=== PATIENT | male | born 1975 | race Caucasian/White ===

== ENCOUNTER 2020-06-24 19:57 | Inpatient (IN) ==
[2020-06-24] MEDS ORDERED: Aspirin 81 MG TAB.CHEW PO ONE (19:59)
[2020-06-24 21:32] LABS: Basophils # 0.1 K/mcL (0.0-0.2); Eosinophils # 0.1 K/mcL (0.0-0.6); Eosinophils % 1.8 %; Hematocrit 48.8 % (37.5-50.1); Hemoglobin 16.9 g/dL (12.9-16.9); Immature Granulocytes % 0.4 % (0-4); Lymphocytes # 3.3 K/mcL (0.6-4.6); Lymphocytes % 41.4 %; Mean Corpuscular HGB Conc 34.6 g/dL (31.6-35.5); Mean Corpuscular Volume 92.4 fL (83.0-100.0); Monocytes # 0.6 K/mcL (0.0-1.3); Monocytes % 6.9 %; Neutrophils # 3.9 K/mcL (1.6-8.9); Platelet Count 115 K/mcL (140-400); Red Blood Count 5.28 M/mcL (4.19-5.50); Red Cell Distribution Width 12.5 % (11.5-14.5); Segmented Neutrophils % 48.5 %
[2020-06-24 22:42] LABS: Troponin I < 0.03 ng/mL (< 0.04)
[2020-06-24 22:43] LABS: BUN/Creatinine Ratio 18 (6-26); Blood Urea Nitrogen 18 mg/dL (6-20); Calcium 9.4 mg/dL (8.6-10.3); Carbon Dioxide 24 mEq/L (23-29); Chloride 95 mEq/L (98-107); Glucose 272 mg/dL (70-105); Osmolality,Calculated 284 (280-300); Potassium 3.7 mEq/L (3.5-5.1); Sodium 131 mEq/L (136-145); eGFR For African Americans > 60 (> 60); eGFR For Non-African Americans > 60 (> 60)
[2020-06-24] MEDS ORDERED: Insulin LISPRO 300 UNITS/3 ML VIAL SUBQ SCH (23:45)
[2020-06-24] MEDS ORDERED: Dextrose Gel 15 GM/37.5 ML TUBE PO PRN ×2 (23:57)
[2020-06-24] MEDS ORDERED: *HR* Dextrose 50 % in Water (Vial) 50 ML VIAL IVP PRN (23:57)
[2020-06-24] MEDS ORDERED: D5% in Water 1,000 ML IVC PRN (23:57)
[2020-06-25] MEDS ORDERED: Ondansetron 4 MG/2 ML VIAL IVP PRN
[2020-06-25] MEDS ORDERED: Naloxone 0.4 MG/ML INJ IVP PRN
[2020-06-25] MEDS ORDERED: Nitroglycerin 1 INCH/GM PACKET TP ONE (00:03)
[2020-06-25] MEDS: Insulin LISPRO 300 UNITS/3 ML VIAL SUBQ SCH ×4 (01:03→16:56)
[2020-06-25] MEDS ORDERED: *HR* Metoprolol 5 MG/5 ML VIAL IVP ONE (01:39)
[2020-06-25 02:56] LABS: Hematocrit 46.3 % (37.5-50.1); Hemoglobin 16.6 g/dL (12.9-16.9); Mean Corpuscular HGB Conc 35.9 g/dL (31.6-35.5); Mean Corpuscular Hemoglobin 33.1 pg (28.0-33.3); Mean Corpuscular Volume 92.4 fL (83.0-100.0); Platelet Count 114 K/mcL (140-400); Red Blood Count 5.01 M/mcL (4.19-5.50); Red Cell Distribution Width 12.6 % (11.5-14.5); White Blood Count 8.3 K/mcL (4.3-11.1)
[2020-06-25 03:46] LABS: Hepatitis B Surface Antigen Nonreactive (Nonreactive)
[2020-06-25 03:54] LABS: BUN/Creatinine Ratio 18 (6-26); Blood Urea Nitrogen 18 mg/dL (6-20); Calcium 8.4 mg/dL (8.6-10.3); Carbon Dioxide 20 mEq/L (23-29); Chloride 96 mEq/L (98-107); Chol/HDL Ratio 9.6 (0-4.9); Cholesterol 258 mg/dL (< 200); Glucose 296 mg/dL (70-105); HDL Cholesterol 27 mg/dL (40-59); Magnesium 1.7 mg/dL (1.6-2.6); Osmolality,Calculated 285 (280-300); Potassium 3.6 mEq/L (3.5-5.1); Sodium 131 mEq/L (136-145); Triglycerides 1593 mg/dL (< 150); eGFR For African Americans > 60 (> 60); eGFR For Non-African Americans > 60 (> 60)
[2020-06-25 04:17] LABS: Hepatitis A Antibody IgM Nonreactive (Nonreactive)
[2020-06-25 04:19] LABS: Hepatitis B Core IgM Reactive (Nonreactive)
[2020-06-25] MEDS ORDERED: *HR* Heparin 5,000 UNIT/ML VIAL SQ SCH (06:00)
[2020-06-25] MEDS ORDERED: Regadenoson 0.4 MG/5 ML SYRINGE IVP ONE (06:12)
[2020-06-25] MEDS: Aspirin Enteric Coated 81 MG Tablet PO SCH (10:31)
[2020-06-25 11:21] LABS: Troponin I < 0.03 ng/mL (< 0.04)
[2020-06-25 12:03] LABS: Triglycerides 569 mg/dL (< 150)
[2020-06-25 12:11] LABS: Chol/HDL Ratio 8.3 (0-4.9); Cholesterol 257 mg/dL (< 200); HDL Cholesterol 31 mg/dL (40-59)
[2020-06-25] MEDS ORDERED: Perflutren Lipid Microsphere 1.3 ML in 0.9 % Sodium Chloride 8.7 ML IVP PRN (13:49)
[2020-06-25] MEDS ORDERED: Furosemide 20 MG/2 ML VIAL IVP ONE (13:50)
[2020-06-25] MEDS ORDERED: *HR* Dextrose 50 % in Water (Vial) 50 ML VIAL IVP PRN (20:29)
[2020-06-25] MEDS ORDERED: Insulin LISPRO 300 UNITS/3 ML VIAL SUBQ SCH (21:00)
[2020-06-26] MEDS: Aspirin Enteric Coated 81 MG Tablet PO SCH (08:41)
[2020-06-26] MEDS: Insulin LISPRO 300 UNITS/3 ML VIAL SUBQ SCH ×4 (08:42→20:29)
[2020-06-26 14:08] LABS: Hematocrit 48.1 % (37.5-50.1); Hemoglobin 15.9 g/dL (12.9-16.9); Mean Corpuscular HGB Conc 33.1 g/dL (31.6-35.5); Mean Corpuscular Hemoglobin 31.1 pg (28.0-33.3); Mean Corpuscular Volume 94.1 fL (83.0-100.0); Mean Platelet Volume 11.8 fL (9.4-12.4); Platelet Count 120 K/mcL (140-400); Red Blood Count 5.11 M/mcL (4.19-5.50); Red Cell Distribution Width 12.8 % (11.5-14.5); White Blood Count 7.2 K/mcL (4.3-11.1)
[2020-06-26 14:26] LABS: Alanine Aminotransferase 30 Units/L (7-52); Albumin 3.7 g/dL (3.5-5.7); Alkaline Phosphatase 95 Units/L (34-104); Aspartate Amino Transferase 23 Units/L (13-39); BUN/Creatinine Ratio 17 (6-26); Bilirubin,Total 0.6 mg/dL (0.3-1.0); Blood Urea Nitrogen 17 mg/dL (6-20); Calcium 8.9 mg/dL (8.6-10.3); Carbon Dioxide 23 mEq/L (23-29); Chloride 99 mEq/L (98-107); Globulin 3.6 g/dL (2.4-3.5); Glucose 382 mg/dL (70-105); Osmolality,Calculated 289 (280-300); Potassium 4.2 mEq/L (3.5-5.1); Sodium 131 mEq/L (136-145); Total Protein 7.3 g/dL (6.4-8.9); eGFR For African Americans > 60 (> 60); eGFR For Non-African Americans > 60 (> 60)
[2020-06-27 01:55] LABS: Basophils # 0.1 K/mcL (0.0-0.2); Basophils % 1.1 %; Eosinophils # 0.1 K/mcL (0.0-0.6); Eosinophils % 1.8 %; Hematocrit 48.3 % (37.5-50.1); Immature Granulocytes % 0.3 % (0-4); Lymphocytes # 3.4 K/mcL (0.6-4.6); Lymphocytes % 47.1 %; Mean Corpuscular HGB Conc 33.1 g/dL (31.6-35.5); Mean Corpuscular Hemoglobin 31.3 pg (28.0-33.3); Mean Corpuscular Volume 94.5 fL (83.0-100.0); Mean Platelet Volume 11.7 fL (9.4-12.4); Monocytes # 0.6 K/mcL (0.0-1.3); Monocytes % 7.7 %; Platelet Count 106 K/mcL (140-400); Red Blood Count 5.11 M/mcL (4.19-5.50); Red Cell Distribution Width 12.6 % (11.5-14.5); White Blood Count 7.2 K/mcL (4.3-11.1)
[2020-06-27 02:11] LABS: BUN/Creatinine Ratio 22 (6-26); Blood Urea Nitrogen 21 mg/dL (6-20); Calcium 8.7 mg/dL (8.6-10.3); Carbon Dioxide 23 mEq/L (23-29); Chloride 97 mEq/L (98-107); Glucose 453 mg/dL (70-105); Osmolality,Calculated 295 (280-300); Potassium 4.2 mEq/L (3.5-5.1); Sodium 131 mEq/L (136-145); eGFR For African Americans > 60 (> 60); eGFR For Non-African Americans > 60 (> 60)
[2020-06-27] MEDS: Fenofibrate 54 MG TABLET PO SCH (08:16)
[2020-06-27] MEDS: Aspirin Enteric Coated 81 MG Tablet PO SCH (08:16)
[2020-06-27] MEDS: Insulin LISPRO 300 UNITS/3 ML VIAL SUBQ SCH ×4 (08:17→20:51)
[2020-06-28 05:16] LABS: Hematocrit 48.5 % (37.5-50.1); Hemoglobin 16.2 g/dL (12.9-16.9); Mean Corpuscular HGB Conc 33.4 g/dL (31.6-35.5); Mean Corpuscular Hemoglobin 31.8 pg (28.0-33.3); Mean Corpuscular Volume 95.1 fL (83.0-100.0); Mean Platelet Volume 12.2 fL (9.4-12.4); Platelet Count 106 K/mcL (140-400); Red Cell Distribution Width 12.2 % (11.5-14.5); White Blood Count 6.7 K/mcL (4.3-11.1)
[2020-06-28 05:45] LABS: BUN/Creatinine Ratio 23 (6-26); Blood Urea Nitrogen 21 mg/dL (6-20); Calcium 8.8 mg/dL (8.6-10.3); Carbon Dioxide 21 mEq/L (23-29); Chloride 97 mEq/L (98-107); Glucose 536 mg/dL (70-105); Osmolality,Calculated 293 (280-300); Potassium 4.5 mEq/L (3.5-5.1); Sodium 128 mEq/L (136-145); eGFR For African Americans > 60 (> 60); eGFR For Non-African Americans > 60 (> 60)
[2020-06-28] MEDS ORDERED: Insulin LISPRO 300 UNITS/3 ML VIAL SUBQ ONE (06:03)
[2020-06-28] MEDS: Insulin LISPRO 300 UNITS/3 ML VIAL SUBQ SCH ×5 (06:11→20:54)
[2020-06-28] MEDS ORDERED: 0.9 % Sodium Chloride 500 ML IVC SCH (08:30)
[2020-06-28 09:07] LABS: INR 1.2; Prothrombin Time 14.2 Seconds (9.4-12.1)
[2020-06-28] MEDS: Fenofibrate 54 MG TABLET PO SCH (09:17)
[2020-06-28] MEDS: Aspirin Enteric Coated 81 MG Tablet PO SCH (09:18)
[2020-06-28] MEDS ORDERED: Heparin 1,000 UNITS/500 mL 500 ML ONE (12:07)
[2020-06-28] MEDS ORDERED: ISOVUE-370 200 ML INFUS..BTL ONE (12:07)
[2020-06-28] MEDS ORDERED: *HR* Heparin 10,000 UNIT/10 ML VIAL ONE (12:07)
[2020-06-28] MEDS ORDERED: 0.9 % Sodium Chloride 2,000 ML ONE (12:07)
[2020-06-28] MEDS ORDERED: Nitroglycerin 1,000 MCG/10 ML VIAL IV ONE (12:07)
[2020-06-28] MEDS ORDERED: *HR* Midazolam HCl 2 MG/2 ML VIAL ONE (12:18)
[2020-06-28] MEDS ORDERED: *HR* FentaNYL (PF) 100 MCG/2 ML VIAL ONE (12:18)
[2020-06-28 15:58] LABS: Albumin 3.1 g/dL (3.5-5.7); Albumin/Globulin Ratio 1.1 (1.1-2.2); Bilirubin,Direct 0.1 mg/dL (0.0-0.2); Bilirubin,Indirect 0.5 mg/dL (0.0-1.0); Bilirubin,Total 0.6 mg/dL (0.3-1.0); Globulin 2.8 g/dL (2.4-3.5); Total Protein 5.9 g/dL (6.4-8.9)
[2020-06-28] MEDS: Insulin DETEMIR 100 UNIT/ML X5UNITS SUBQ SCH (20:48)
[2020-06-29 04:34] LABS: Hematocrit 48.1 % (37.5-50.1); Hemoglobin 15.7 g/dL (12.9-16.9); Mean Corpuscular HGB Conc 32.6 g/dL (31.6-35.5); Mean Corpuscular Hemoglobin 31.2 pg (28.0-33.3); Mean Corpuscular Volume 95.4 fL (83.0-100.0); Platelet Count 104 K/mcL (140-400); Red Blood Count 5.04 M/mcL (4.19-5.50); Red Cell Distribution Width 12.4 % (11.5-14.5); White Blood Count 7.5 K/mcL (4.3-11.1)
[2020-06-29 04:36] LABS: INR 1.2; Prothrombin Time 13.5 Seconds (9.4-12.1)
[2020-06-29 04:38] LABS: Activated Partial Thrombo Time 29.4 Seconds (26.0-36.0)
[2020-06-29 04:52] LABS: BUN/Creatinine Ratio 18 (6-26); Blood Urea Nitrogen 19 mg/dL (6-20); Calcium 8.6 mg/dL (8.6-10.3); Carbon Dioxide 23 mEq/L (23-29); Chloride 100 mEq/L (98-107); Glucose 490 mg/dL (70-105); Osmolality,Calculated 296 (280-300); Potassium 4.8 mEq/L (3.5-5.1); Sodium 131 mEq/L (136-145); eGFR For African Americans > 60 (> 60); eGFR For Non-African Americans > 60 (> 60)
[2020-06-29] MEDS: Aspirin Enteric Coated 81 MG Tablet PO SCH (07:39)
[2020-06-29] MEDS: Fenofibrate 54 MG TABLET PO SCH (07:41)
[2020-06-29] MEDS: Insulin LISPRO 300 UNITS/3 ML VIAL SUBQ SCH ×4 (07:47→20:25)
[2020-06-29 12:23] LABS: Adenovirus Not Detected (Not Detect); Bordetella Pertussis Not Detected (Not Detect); Chlamydophila pneumoniae Not Detected (Not Detect); Coronavirus 229E Not Detected (Not Detect); Coronavirus HKU1 Not Detected (Not Detect); Coronavirus NL63 Not Detected (Not Detect); Coronavirus OC43 Not Detected (Not Detect); Human Metapneumovirus Not Detected (Not Detect); Human Rhinovirus/Enterovirus Not Detected (Not Detect); Influenza A Subtype 2009 H1 Not Detected (Not Detect); Influenza B Not Detected (Not Detect); Mycoplasma pneumoniae Not Detected (Not Detect); Parainfluenza Virus 1 Not Detected (Not Detect); Parainfluenza Virus 2 Not Detected (Not Detect); Parainfluenza Virus 3 Not Detected (Not Detect); Parainfluenza Virus 4 Not Detected (Not Detect); Respiratory Syncytial Virus Not Detected (Not Detect); SARS-CoV-2 Not Detected (Not Detect)
[2020-06-29 17:19] LABS: Estimated Average Glucose 252 mg/dl; Hemoglobin A1C 10.4 %
[2020-06-29 17:22] LABS: Chol/HDL Ratio 6.1 (0-4.9)
[2020-06-29] MEDS: Chlorhexidine Rinse 15 ML MOUTHWASH MM SCH (20:14)
[2020-06-29] MEDS: Insulin DETEMIR 100 UNIT/ML X5UNITS SUBQ SCH (20:18)
[2020-06-29 21:51] LABS: Bilirubin,Urine Negative (Negative); Blood,Urine Trace (Negative); Clarity,Urine Clear (Clear); Color,Urine Light-Yellow (Yellow); Glucose,Urine (UA) >=1000 mg/dL (Normal); Ketones,Urine Negative (Negative); Leukocyte Esterase,Urine Negative (Negative); Nitrite,Urine Negative (Negative); PH,Urine 6.5 pH Units (5.0-8.0); Protein,Urine Trace mg/dL (Neg-Trace); RBC,Urine 0-3 per hpf (0-3); Urobilinogen,Urine Normal (Normal); WBC,Urine 0-3 per hpf (0-3)
[2020-06-30] MEDS ORDERED: NiCARdipine 2.5 MG/10 ML Syringe IVPB ONE (06:43)
[2020-06-30] MEDS ORDERED: *HR* Midazolam HCl 5 MG/5 ML VIAL IVP ONE (06:45)
[2020-06-30] MEDS ORDERED: *HR* FentaNYL (PF) 1,000 MCG/20 ML VIAL ONE (06:45)
[2020-06-30] MEDS ORDERED: *HR* Rocuronium Bromide 50 MG/5 ML VIAL ONE ×2 (06:47→11:23)
[2020-06-30] MEDS ORDERED: *HR* PHENYLEPHRINE 1,000 MCG/10 ML SYRINGE IVP ONE (06:47)
[2020-06-30] MEDS ORDERED: *HR* Etomidate 20 MG/10 ML AMPUL IVP ONE (06:48)
[2020-06-30] MEDS ORDERED: EPINEPHrine 1 MG/ML VIAL ONE (06:48)
[2020-06-30] MEDS ORDERED: Famotidine 20 MG/2 ML VIAL ONE (06:48)
[2020-06-30] MEDS: Chlorhexidine Rinse 15 ML MOUTHWASH MM SCH ×2 (06:48→19:42)
[2020-06-30] MEDS ORDERED: Calcium Gluconate 1,000 MG/10 ML VIAL ONE (06:49)
[2020-06-30] MEDS ORDERED: Protamine Sulfate 250 MG/25 ML VIAL IVP ONE (06:49)
[2020-06-30] MEDS ORDERED: Tranexamic Acid 1,000 MG/10 ML VIAL ONE ×4 (06:49→11:30)
[2020-06-30] MEDS ORDERED: CeFAZolin Syr 2,000MG/20 ML 2,000 MG/20 ML SYRINGE IVPB ONE ×2 (07:00→07:45)
[2020-06-30] MEDS ORDERED: Papaverine 60 MG/2 ML VIAL IVP ONE (07:07)
[2020-06-30] MEDS ORDERED: Dextrose 50 % in Water (Vial) 30 ML, Sodium Bicarbonate 20 MEQ, Lidocaine 1% 5 ML, Insu... TH ONE ×3 (07:45)
[2020-06-30] MEDS ORDERED: Dextrose 50 % in Water (Vial) 30 ML, Sodium Bicarbonate 20 MEQ, Potassium Chloride 15 M... TH ONE (07:45)
[2020-06-30] MEDS ORDERED: Insulin Human Regular 100 UNIT in 0.9 % Sodium Chloride 100 ML IV PRN (07:45)
[2020-06-30] MEDS ORDERED: Heparin 15,000 UNIT in 0.9 % Sodium Chloride 500 ML IV ONE (07:45)
[2020-06-30] MEDS ORDERED: Norepinephrine 4 MG in 0.9 % Sodium Chloride 250 ML IVC PRN (07:45)
[2020-06-30] MEDS ORDERED: Albumin Human 25% 25 GM/100 ML IV.SOLN IVPB ONE (08:24)
[2020-06-30] MEDS ORDERED: Tranexamic Acid 1,000 MG/10 ML VIAL IR ONE (08:24)
[2020-06-30] MEDS ORDERED: *HR* Heparin 10,000 UNIT/10 ML VIAL IR ONE (08:24)
[2020-06-30] MEDS ORDERED: *HR* Magnesium Sulfate 2 GM/50 ML PIGGYBACK IVPB ONE (08:24)
[2020-06-30] MEDS ORDERED: *HR* Phenylephrine 10 MG/ML VIAL IVC ONE (08:24)
[2020-06-30] MEDS ORDERED: Mannitol 25% vial 12.5 GM/50 ML VIAL IVPB ONE (08:24)
[2020-06-30] MEDS ORDERED: Lidocaine 2% Syringe 100 MG/5 ML IVP ONE (08:24)
[2020-06-30 09:13] LABS: ABG Base Excess -1 mEq/L (-2 to 3); ABG Chloride 100 mEq/L (98-107); ABG Glucose 354 mg/dL (60-95); ABG HCO3 24 mEq/L (21-27); ABG Ionized Calcium 1.14 mmol/L (1.15-1.35); ABG Oxygen Saturation 100 % (95-98); ABG PCO2 39 mmHg (35-45); ABG PH 7.39 pH Units (7.32-7.45); ABG PO2 172 mmHg (85-104); ABG TCO2 25 mEq/L (20-26)
[2020-06-30 09:59] LABS: ABG Base Excess -7 mEq/L (-2 to 3); ABG Chloride 113 mEq/L (98-107); ABG Glucose 287 mg/dL (60-95); ABG HCO3 18 mEq/L (21-27); ABG Ionized Calcium 0.55 mmol/L (1.15-1.35); ABG Oxygen Saturation 99 % (95-98); ABG PCO2 34 mmHg (35-45); ABG PH 7.33 pH Units (7.32-7.45); ABG PO2 161 mmHg (85-104); ABG TCO2 19 mEq/L (20-26)
[2020-06-30 10:15] LABS: ABG Base Excess -2 mEq/L (-2 to 3); ABG Chloride 96 mEq/L (98-107); ABG Glucose 374 mg/dL (60-95); ABG HCO3 23 mEq/L (21-27); ABG Ionized Calcium 0.96 mmol/L (1.15-1.35); ABG Oxygen Saturation 100 % (95-98); ABG PCO2 42 mmHg (35-45); ABG PH 7.35 pH Units (7.32-7.45); ABG PO2 623 mmHg (85-104); ABG TCO2 25 mEq/L (20-26)
[2020-06-30 11:11] LABS: ABG Base Excess -1 mEq/L (-2 to 3); ABG Chloride 96 mEq/L (98-107); ABG Glucose 394 mg/dL (60-95); ABG HCO3 25 mEq/L (21-27); ABG Ionized Calcium 0.97 mmol/L (1.15-1.35); ABG Oxygen Saturation 100 % (95-98); ABG PCO2 43 mmHg (35-45); ABG PH 7.37 pH Units (7.32-7.45); ABG PO2 497 mmHg (85-104); ABG TCO2 26 mEq/L (20-26)
[2020-06-30 11:41] LABS: ABG Base Excess -5 mEq/L (-2 to 3); ABG Chloride 100 mEq/L (98-107); ABG Glucose 368 mg/dL (60-95); ABG HCO3 20 mEq/L (21-27); ABG Ionized Calcium 1.08 mmol/L (1.15-1.35); ABG Oxygen Saturation 100 % (95-98); ABG PCO2 34 mmHg (35-45); ABG PH 7.38 pH Units (7.32-7.45); ABG PO2 630 mmHg (85-104); ABG TCO2 21 mEq/L (20-26)
[2020-06-30] MEDS ORDERED: Albumin Human 5% 50.0 GM/1,000 ML IV.SOLN ONE (11:43)
[2020-06-30] MEDS ORDERED: Protamine Sulfate 50 MG/5 ML VIAL IVP ONE (11:50)
[2020-06-30] MEDS ORDERED: *HR* Dextrose 50 % in Water (Vial) 50 ML VIAL IVP PRN (12:19)
[2020-06-30] MEDS ORDERED: Potassium Chloride 40 MEQ/200 ML BAG IVPB PRN (12:19)
[2020-06-30] MEDS ORDERED: Insulin Regular, Human 100 UNIT/ML IV PRN (12:19)
[2020-06-30] MEDS ORDERED: *HR* Promethazine 25 MG/ML VIAL IM PRN (12:19)
[2020-06-30] MEDS ORDERED: Albumin Human 5% 12.5 GM/250 ML IV.SOLN IVPB PRN (12:19)
[2020-06-30 12:27] LABS: ABG Base Excess -6 mEq/L (-2 to 3); ABG Chloride 109 mEq/L (98-107); ABG Glucose 311 mg/dL (60-95); ABG HCO3 19 mEq/L (21-27); ABG Ionized Calcium 0.79 mmol/L (1.15-1.35); ABG Oxygen Saturation 98 % (95-98); ABG PCO2 35 mmHg (35-45); ABG PH 7.34 pH Units (7.32-7.45); ABG PO2 119 mmHg (85-104); ABG TCO2 20 mEq/L (20-26)
[2020-06-30] MEDS ORDERED: 0.9 % Sodium Chloride 1,000 ML IVC SCH (12:30)
[2020-06-30] MEDS ORDERED: Norepinephrine 4 MG/254 ML IV.SOLN IVC SCH (12:30)
[2020-06-30] MEDS: Insulin Human Regular 100 UNIT in 0.9 % Sodium Chloride 100 ML IVC SCH ×2 (12:35→20:06)
[2020-06-30 12:52] LABS: ABG Base Excess 0 mEq/L (-2 to 3); ABG HCO3 26 mEq/L (21-27); ABG Oxygen Saturation 98 % (95-98); ABG PCO2 44 mmHg (35-45); ABG PH 7.37 pH Units (7.32-7.45); ABG PO2 115 mmHg (85-104); ABG TCO2 27 mEq/L (20-26); Blood Gas Modality ASSIST CONTROL; Blood Gas VT 700 cc
[2020-06-30 13:03] LABS: Basophils # 0.1 K/mcL (0.0-0.2); Basophils % 0.6 %; Eosinophils # 0.1 K/mcL (0.0-0.6); Eosinophils % 0.9 %; Hematocrit 38.8 % (37.5-50.1); Immature Granulocytes % 0.6 % (0-4); Lymphocytes # 2.2 K/mcL (0.6-4.6); Lymphocytes % 18.7 %; Mean Corpuscular HGB Conc 33.5 g/dL (31.6-35.5); Mean Corpuscular Hemoglobin 31.3 pg (28.0-33.3); Mean Corpuscular Volume 93.3 fL (83.0-100.0); Mean Platelet Volume 11.6 fL (9.4-12.4); Monocytes # 0.8 K/mcL (0.0-1.3); Monocytes % 6.7 %; Red Blood Count 4.16 M/mcL (4.19-5.50); Red Cell Distribution Width 12.3 % (11.5-14.5); Segmented Neutrophils % 72.5 %
[2020-06-30 13:05] LABS: White Blood Count 11.5 K/mcL (4.3-11.1)
[2020-06-30 13:06] LABS: Neutrophils # 8.3 K/mcL (1.6-8.9); Platelet Count 85 K/mcL (140-400)
[2020-06-30] MEDS: *HR* FentaNYL (PF) 100 MCG/2 ML VIAL IVP PRN ×8 (13:06→23:03)
[2020-06-30 13:11] LABS: INR 1.5; Prothrombin Time 17.6 Seconds (9.4-12.1)
[2020-06-30 13:16] LABS: Activated Partial Thrombo Time 27.3 Seconds (26.0-36.0)
[2020-06-30 13:21] LABS: BUN/Creatinine Ratio 19 (6-26); Blood Urea Nitrogen 16 mg/dL (6-20); Calcium 8.8 mg/dL (8.6-10.3); Carbon Dioxide 24 mEq/L (23-29); Chloride 103 mEq/L (98-107); Glucose 307 mg/dL (70-105); Magnesium 2.3 mg/dL (1.6-2.6); Osmolality,Calculated 295 (280-300); Sodium 136 mEq/L (136-145); eGFR For African Americans > 60 (> 60); eGFR For Non-African Americans > 60 (> 60)
[2020-06-30] MEDS: *HR* OxyCODONE/APAP 5/325 TABLET PO PRN ×3 (13:36→23:00)
[2020-06-30] MEDS: niCARdipine 20 MG/200 ML MLS IVC SCH ×3 (15:07→19:42)
[2020-06-30] MEDS: Aspirin Enteric Coated 81 MG Tablet PO SCH (16:09)
[2020-06-30] MEDS: Fenofibrate 54 MG TABLET PO SCH (16:10)
[2020-06-30] MEDS: CeFAZolin 2 GM/120 ML BAG IVPB SCH (16:27)
[2020-06-30 17:23] LABS: ABG Base Excess -1 mEq/L (-2 to 3); ABG HCO3 24 mEq/L (21-27); ABG Oxygen Saturation 97 % (95-98); ABG PCO2 40 mmHg (35-45); ABG PH 7.38 pH Units (7.32-7.45); ABG PO2 96 mmHg (85-104); ABG TCO2 25 mEq/L (20-26); Blood Gas Modality CPAP/PS; Blood Gas Pressure Support 5 cm H2O
[2020-06-30 18:46] LABS: ABG Base Excess -5 mEq/L (-2 to 3); ABG HCO3 21 mEq/L (21-27); ABG Oxygen Saturation 95 % (95-98); ABG PCO2 39 mmHg (35-45); ABG PH 7.34 pH Units (7.32-7.45); ABG PO2 78 mmHg (85-104); ABG TCO2 22 mEq/L (20-26)
[2020-07-01] MEDS: *HR* FentaNYL (PF) 100 MCG/2 ML VIAL IVP PRN ×7 (00:13→07:03)
[2020-07-01] MEDS: CeFAZolin 2 GM/120 ML BAG IVPB SCH (00:14)
[2020-07-01] MEDS: *HR* OxyCODONE/APAP 5/325 TABLET PO PRN (04:17)
[2020-07-01] MEDS: niCARdipine 20 MG/200 ML MLS IVC SCH ×2 (04:20→04:21)
[2020-07-01 04:25] LABS: Eosinophils % 0.1 %; Immature Granulocytes % 0.6 % (0-4)
[2020-07-01 04:27] LABS: Basophils # 0.1 K/mcL (0.0-0.2); Basophils % 0.5 %; Hematocrit 41.5 % (37.5-50.1); Hemoglobin 13.8 g/dL (12.9-16.9); Immature Platelets 8.3 % (1.1-6.1); Lymphocytes # 2.4 K/mcL (0.6-4.6); Lymphocytes % 13.3 %; Mean Corpuscular HGB Conc 33.3 g/dL (31.6-35.5); Mean Corpuscular Hemoglobin 31.3 pg (28.0-33.3); Mean Corpuscular Volume 94.1 fL (83.0-100.0); Mean Platelet Volume 11.8 fL (9.4-12.4); Monocytes # 2.7 K/mcL (0.0-1.3); Monocytes % 14.8 %; Neutrophils # 12.8 K/mcL (1.6-8.9); Platelet Count 118 K/mcL (140-400); Red Blood Count 4.41 M/mcL (4.19-5.50); Red Cell Distribution Width 12.8 % (11.5-14.5); Segmented Neutrophils % 70.7 %; White Blood Count 18.1 K/mcL (4.3-11.1)
[2020-07-01 04:38] LABS: BUN/Creatinine Ratio 19 (6-26); Blood Urea Nitrogen 17 mg/dL (6-20); Calcium 8.3 mg/dL (8.6-10.3); Carbon Dioxide 24 mEq/L (23-29); Chloride 105 mEq/L (98-107); Glucose 144 mg/dL (70-105); Osmolality,Calculated 286 (280-300); Potassium 4.9 mEq/L (3.5-5.1); Sodium 136 mEq/L (136-145); eGFR For African Americans > 60 (> 60); eGFR For Non-African Americans > 60 (> 60)
[2020-07-01] MEDS: Insulin Human Regular 100 UNIT in 0.9 % Sodium Chloride 100 ML IVC SCH (08:00)
[2020-07-01] MEDS ORDERED: *HR* HYDROmorphone (PF) 1 MG/ML SYRINGE IVP PRN (08:11)
[2020-07-01] MEDS ORDERED: *HR* OxyCODONE/APAP 10/325 TABLET PO PRN (08:13)
[2020-07-01] MEDS: Chlorhexidine Rinse 15 ML MOUTHWASH MM SCH ×2 (08:35→21:07)
[2020-07-01] MEDS: Aspirin Enteric Coated 81 MG Tablet PO SCH (08:35)
[2020-07-01] MEDS: Fenofibrate 54 MG TABLET PO SCH (08:35)
[2020-07-01] MEDS ORDERED: Pantoprazole 40 MG VIAL IVP SCH (09:00)
[2020-07-01] MEDS ORDERED: *HR* Promethazine 25 MG/ML VIAL IM PRN (09:48)
[2020-07-01] MEDS ORDERED: D5% in Water 1,000 ML IVC PRN (09:48)
[2020-07-01] MEDS ORDERED: Naloxone 0.4 MG/ML INJ IVP PRN (09:48)
[2020-07-01] MEDS ORDERED: *HR* HYDROmorphone 2 MG/ML SYRINGE IVP PRN (09:48)
[2020-07-01] MEDS ORDERED: *HR* Dextrose 50 % in Water (Vial) 50 ML VIAL IVP PRN (09:48)
[2020-07-01] MEDS ORDERED: Ondansetron 4 MG/2 ML VIAL IVP PRN (09:48)
[2020-07-01] MEDS ORDERED: Dextrose Gel 15 GM/37.5 ML TUBE PO PRN ×2 (09:48)
[2020-07-01] MEDS: *HR* OxyCODONE/APAP 10/325 TABLET PO PRN ×3 (10:21→22:25)
[2020-07-01] MEDS: Insulin DETEMIR 100 UNIT/ML X5UNITS SUBQ SCH ×2 (10:21→21:08)
[2020-07-01] MEDS: Insulin LISPRO 300 UNITS/3 ML VIAL SUBQ SCH ×3 (10:22→21:05)
[2020-07-01] MEDS: *HR* HYDROmorphone (PF) 1 MG/ML SYRINGE IVP PRN ×3 (15:54→21:09)
[2020-07-01] MEDS: *HR* Heparin 5,000 UNIT/ML VIAL SQ SCH (17:16)
[2020-07-02] MEDS: *HR* HYDROmorphone (PF) 1 MG/ML SYRINGE IVP PRN ×4 (01:12→19:43)
[2020-07-02] MEDS: *HR* Heparin 5,000 UNIT/ML VIAL SQ SCH ×2 (04:45→17:17)
[2020-07-02] MEDS: *HR* OxyCODONE/APAP 10/325 TABLET PO PRN ×4 (04:46→22:37)
[2020-07-02 06:13] LABS: Basophils # 0.1 K/mcL (0.0-0.2); Basophils % 0.4 %; Eosinophils # 0.1 K/mcL (0.0-0.6); Eosinophils % 0.6 %; Hematocrit 39.9 % (37.5-50.1); Hemoglobin 12.9 g/dL (12.9-16.9); Immature Granulocytes % 0.5 % (0-4); Lymphocytes # 2.6 K/mcL (0.6-4.6); Lymphocytes % 16.3 %; Mean Corpuscular HGB Conc 32.3 g/dL (31.6-35.5); Mean Corpuscular Hemoglobin 31.6 pg (28.0-33.3); Mean Corpuscular Volume 97.8 fL (83.0-100.0); Mean Platelet Volume 11.7 fL (9.4-12.4); Monocytes # 2.1 K/mcL (0.0-1.3); Monocytes % 13.1 %; Neutrophils # 11.2 K/mcL (1.6-8.9); Platelet Count 108 K/mcL (140-400); Red Blood Count 4.08 M/mcL (4.19-5.50); Red Cell Distribution Width 12.6 % (11.5-14.5); Segmented Neutrophils % 69.1 %; White Blood Count 16.2 K/mcL (4.3-11.1)
[2020-07-02 06:34] LABS: BUN/Creatinine Ratio 21 (6-26); Blood Urea Nitrogen 19 mg/dL (6-20); Calcium 8.9 mg/dL (8.6-10.3); Carbon Dioxide 27 mEq/L (23-29); Chloride 98 mEq/L (98-107); Glucose 310 mg/dL (70-105); Osmolality,Calculated 288 (280-300); Potassium 5.4 mEq/L (3.5-5.1); Sodium 132 mEq/L (136-145); eGFR For African Americans > 60 (> 60); eGFR For Non-African Americans > 60 (> 60)
[2020-07-02] MEDS: Chlorhexidine Rinse 15 ML MOUTHWASH MM SCH ×2 (08:56→19:42)
[2020-07-02] MEDS: Insulin LISPRO 300 UNITS/3 ML VIAL SUBQ SCH ×4 (08:58→19:41)
[2020-07-02] MEDS: Aspirin Enteric Coated 81 MG Tablet PO SCH (08:59)
[2020-07-02] MEDS: Fenofibrate 54 MG TABLET PO SCH (08:59)
[2020-07-02] MEDS ORDERED: Pantoprazole 40 MG VIAL IVP SCH (09:00)
[2020-07-02] MEDS: Insulin DETEMIR 100 UNIT/ML X5UNITS SUBQ SCH ×2 (10:19→19:42)
[2020-07-02] MEDS: Famotidine 20 MG TABLET PO SCH (19:42)
[2020-07-03] MEDS: *HR* HYDROmorphone (PF) 1 MG/ML SYRINGE IVP PRN ×3 (00:23→12:00)
[2020-07-03 03:27] LABS: Basophils % 0.5 %; Hemoglobin 12.1 g/dL (12.9-16.9)
[2020-07-03 03:29] LABS: Basophils # 0.1 K/mcL (0.0-0.2); Eosinophils # 0.1 K/mcL (0.0-0.6); Eosinophils % 0.9 %; Hematocrit 36.9 % (37.5-50.1); Immature Granulocytes % 0.6 % (0-4); Immature Platelets 9.7 % (1.1-6.1); Lymphocytes # 3.3 K/mcL (0.6-4.6); Lymphocytes % 29.5 %; Mean Corpuscular HGB Conc 32.8 g/dL (31.6-35.5); Mean Corpuscular Hemoglobin 31.6 pg (28.0-33.3); Mean Corpuscular Volume 96.3 fL (83.0-100.0); Mean Platelet Volume 11.8 fL (9.4-12.4); Monocytes # 1.2 K/mcL (0.0-1.3); Monocytes % 10.6 %; Neutrophils # 6.5 K/mcL (1.6-8.9); Red Blood Count 3.83 M/mcL (4.19-5.50); Red Cell Distribution Width 12.6 % (11.5-14.5); Segmented Neutrophils % 57.9 %; White Blood Count 11.2 K/mcL (4.3-11.1)
[2020-07-03 03:31] LABS: Platelet Count 89 K/mcL (140-400)
[2020-07-03 03:35] LABS: BUN/Creatinine Ratio 21 (6-26); Blood Urea Nitrogen 19 mg/dL (6-20); Calcium 9.3 mg/dL (8.6-10.3); Carbon Dioxide 28 mEq/L (23-29); Chloride 97 mEq/L (98-107); Glucose 288 mg/dL (70-105); Osmolality,Calculated 287 (280-300); Potassium 4.5 mEq/L (3.5-5.1); Sodium 132 mEq/L (136-145); eGFR For African Americans > 60 (> 60); eGFR For Non-African Americans > 60 (> 60)
[2020-07-03] MEDS: *HR* OxyCODONE/APAP 10/325 TABLET PO PRN ×3 (04:01→20:16)
[2020-07-03] MEDS: *HR* Heparin 5,000 UNIT/ML VIAL SQ SCH ×2 (04:01→16:59)
[2020-07-03] MEDS: Aspirin Enteric Coated 81 MG Tablet PO SCH (07:58)
[2020-07-03] MEDS: Famotidine 20 MG TABLET PO SCH ×2 (07:58→20:15)
[2020-07-03] MEDS: Fenofibrate 54 MG TABLET PO SCH (07:59)
[2020-07-03] MEDS: Insulin LISPRO 300 UNITS/3 ML VIAL SUBQ SCH ×4 (08:02→20:24)
[2020-07-03] MEDS: Chlorhexidine Rinse 15 ML MOUTHWASH MM SCH ×2 (08:02→20:15)
[2020-07-03] MEDS: Insulin DETEMIR 100 UNIT/ML X5UNITS SUBQ SCH ×2 (10:06→20:24)
[2020-07-04] MEDS: *HR* OxyCODONE/APAP 10/325 TABLET PO PRN ×2 (00:01→08:35)
[2020-07-04] MEDS: *HR* Heparin 5,000 UNIT/ML VIAL SQ SCH ×2 (06:42→17:04)
[2020-07-04] MEDS: Chlorhexidine Rinse 15 ML MOUTHWASH MM SCH ×2 (08:29→19:51)
[2020-07-04] MEDS: Insulin LISPRO 300 UNITS/3 ML VIAL SUBQ SCH ×4 (08:29→20:01)
[2020-07-04] MEDS: Aspirin Enteric Coated 81 MG Tablet PO SCH (08:29)
[2020-07-04] MEDS: Fenofibrate 54 MG TABLET PO SCH (08:29)
[2020-07-04] MEDS: Insulin DETEMIR 100 UNIT/ML X5UNITS SUBQ SCH ×2 (08:29→19:49)
[2020-07-04] MEDS: Famotidine 20 MG TABLET PO SCH ×2 (08:29→19:50)
[2020-07-04] MEDS: polyethylene glycoL 3350 17 GM POWD.PACK PO SCH (10:58)
[2020-07-04] MEDS: Gabapentin 300 MG CAPSULE PO SCH ×3 (10:58→19:50)
[2020-07-04] MEDS: *HR* HYDROmorphone (PF) 1 MG/ML SYRINGE IVP PRN (19:47)
[2020-07-04 20:47] LABS: HBV Quant Log by PCR NOT DETECTED log IU/mL; HBV Quant by PCR NOT DETECTED
[2020-07-04] MEDS ORDERED: Insulin DETEMIR 100 UNIT/ML X5UNITS SUBQ SCH (21:00)
[2020-07-05] MEDS: *HR* OxyCODONE/APAP 10/325 TABLET PO PRN ×4 (04:02→20:06)
[2020-07-05] MEDS: *HR* Heparin 5,000 UNIT/ML VIAL SQ SCH ×2 (06:06→17:15)
[2020-07-05 07:00] LABS: HBV Quant Interpretation NOT DETECTED (Not Detected)
[2020-07-05] MEDS: Chlorhexidine Rinse 15 ML MOUTHWASH MM SCH ×2 (08:31→20:05)
[2020-07-05] MEDS: Famotidine 20 MG TABLET PO SCH ×2 (08:31→20:06)
[2020-07-05] MEDS: polyethylene glycoL 3350 17 GM POWD.PACK PO SCH (08:31)
[2020-07-05] MEDS: Fenofibrate 54 MG TABLET PO SCH (08:31)
[2020-07-05] MEDS: Aspirin Enteric Coated 81 MG Tablet PO SCH (08:31)
[2020-07-05] MEDS: Gabapentin 300 MG CAPSULE PO SCH ×3 (08:32→20:06)
[2020-07-05] MEDS: Insulin LISPRO 300 UNITS/3 ML VIAL SUBQ SCH ×4 (08:32→20:19)
[2020-07-05] MEDS: Insulin DETEMIR 100 UNIT/ML X5UNITS SUBQ SCH ×2 (08:36→20:19)
[2020-07-05] MEDS: *HR* HYDROmorphone (PF) 1 MG/ML SYRINGE IVP PRN ×3 (15:39→23:17)
[2020-07-06] MEDS: *HR* Heparin 5,000 UNIT/ML VIAL SQ SCH ×2 (06:09→16:11)
[2020-07-06] MEDS: *HR* OxyCODONE/APAP 10/325 TABLET PO PRN ×2 (06:09→12:22)
[2020-07-06] MEDS: Insulin LISPRO 300 UNITS/3 ML VIAL SUBQ SCH ×4 (07:52→20:33)
[2020-07-06] MEDS: Chlorhexidine Rinse 15 ML MOUTHWASH MM SCH ×2 (07:54→20:29)
[2020-07-06] MEDS: Insulin DETEMIR 100 UNIT/ML X5UNITS SUBQ SCH ×2 (07:54→20:31)
[2020-07-06] MEDS: Aspirin Enteric Coated 81 MG Tablet PO SCH (07:54)
[2020-07-06] MEDS: Famotidine 20 MG TABLET PO SCH ×2 (07:54→20:31)
[2020-07-06] MEDS: polyethylene glycoL 3350 17 GM POWD.PACK PO SCH (07:56)
[2020-07-06] MEDS: Fenofibrate 54 MG TABLET PO SCH (07:56)
[2020-07-06] MEDS: Gabapentin 300 MG CAPSULE PO SCH ×3 (07:56→20:30)
[2020-07-06] MEDS: *HR* HYDROmorphone (PF) 1 MG/ML SYRINGE IVP PRN ×3 (08:33→20:35)
[2020-07-07] MEDS: *HR* HYDROmorphone (PF) 1 MG/ML SYRINGE IVP PRN ×6 (03:15→23:38)
[2020-07-07] MEDS: *HR* Heparin 5,000 UNIT/ML VIAL SQ SCH ×2 (05:50→16:31)
[2020-07-07 07:03] LABS: HCV Quant Log NOT DETECTED log IU/mL
[2020-07-07] MEDS: Gabapentin 300 MG CAPSULE PO SCH ×3 (07:58→21:13)
[2020-07-07] MEDS: Fenofibrate 54 MG TABLET PO SCH (07:58)
[2020-07-07] MEDS: Aspirin Enteric Coated 81 MG Tablet PO SCH (07:58)
[2020-07-07] MEDS: polyethylene glycoL 3350 17 GM POWD.PACK PO SCH (07:59)
[2020-07-07] MEDS: Chlorhexidine Rinse 15 ML MOUTHWASH MM SCH ×2 (07:59→21:09)
[2020-07-07] MEDS: Famotidine 20 MG TABLET PO SCH ×2 (08:35→21:12)
[2020-07-07] MEDS: Insulin DETEMIR 100 UNIT/ML X5UNITS SUBQ SCH ×2 (08:36→22:52)
[2020-07-07] MEDS: Insulin LISPRO 300 UNITS/3 ML VIAL SUBQ SCH ×6 (08:36→22:52)
[2020-07-07] MEDS: *HR* OxyCODONE/APAP 10/325 TABLET PO PRN ×2 (08:57→16:28)
[2020-07-07 09:56] LABS: HCV Quant Interpretation NOT DETECTED (Not Detected)
[2020-07-08] MEDS: *HR* OxyCODONE/APAP 10/325 TABLET PO PRN ×2 (02:19→12:45)
[2020-07-08] MEDS: *HR* Heparin 5,000 UNIT/ML VIAL SQ SCH (07:46)
[2020-07-08] MEDS: Insulin LISPRO 300 UNITS/3 ML VIAL SUBQ SCH ×2 (08:43→12:45)
[2020-07-08] MEDS: Chlorhexidine Rinse 15 ML MOUTHWASH MM SCH (08:44)
[2020-07-08] MEDS: Aspirin Enteric Coated 81 MG Tablet PO SCH (08:44)
[2020-07-08] MEDS: Fenofibrate 54 MG TABLET PO SCH (08:45)
[2020-07-08] MEDS: Gabapentin 300 MG CAPSULE PO SCH (08:45)
[2020-07-08] MEDS: polyethylene glycoL 3350 17 GM POWD.PACK PO SCH (08:45)
[2020-07-08] MEDS: Insulin DETEMIR 100 UNIT/ML X5UNITS SUBQ SCH (08:45)
[2020-07-08] MEDS: Famotidine 20 MG TABLET PO SCH (08:45)
[2020-07-08 10:35] LABS: BUN/Creatinine Ratio 21 (6-26); Blood Urea Nitrogen 18 mg/dL (6-20); Calcium 8.7 mg/dL (8.6-10.3); Carbon Dioxide 26 mEq/L (23-29); Chloride 96 mEq/L (98-107); Glucose 386 mg/dL (70-105); Magnesium 1.9 mg/dL (1.6-2.6); Osmolality,Calculated 286 (280-300); Potassium 4.6 mEq/L (3.5-5.1); Sodium 129 mEq/L (136-145); eGFR For African Americans > 60 (> 60); eGFR For Non-African Americans > 60 (> 60)
[2020-07-08 11:22] VITALS: BP 136/80
[2020-07-08 11:42] LABS: Basophils # 0.1 K/mcL (0.0-0.2); Eosinophils # 0.1 K/mcL (0.0-0.6); Eosinophils % 2.2 %; Hemoglobin 11.4 g/dL (12.9-16.9); Immature Granulocytes % 0.5 % (0-4); Lymphocytes # 1.8 K/mcL (0.6-4.6); Mean Corpuscular HGB Conc 32.6 g/dL (31.6-35.5); Mean Corpuscular Hemoglobin 31.3 pg (28.0-33.3); Mean Corpuscular Volume 96.2 fL (83.0-100.0); Mean Platelet Volume 11.8 fL (9.4-12.4); Monocytes # 0.6 K/mcL (0.0-1.3); Monocytes % 9.1 %; Neutrophils # 3.6 K/mcL (1.6-8.9); Platelet Count 154 K/mcL (140-400); Red Blood Count 3.64 M/mcL (4.19-5.50); Red Cell Distribution Width 12.4 % (11.5-14.5); Segmented Neutrophils % 58.2 %; White Blood Count 6.3 K/mcL (4.3-11.1)
[2020-07-08] MEDS ORDERED: Insulin LISPRO 300 UNITS/3 ML VIAL SUBQ SCH (12:00)
== END 2020-07-08 15:24 | disposition home or self-care (01) | DRG 166 ==
LOC: EMEROOARM 19:57 → 3BNU 19:57 → SUATTDRO 06-28 16:04 → ICNU 06-30 07:54 → 2NNU 07-01 18:20
PROVIDERS: ADMIT Internal Medicine; ATTEND Pharmacist

== ENCOUNTER 2021-09-07 14:56 | Inpatient (IN) ==
[2021-09-07] MEDS ORDERED: Isovue-370 500 ML BOTTLE IVP ONE (21:09)
[2021-09-07] MEDS ORDERED: 0.9 % Sodium Chloride 2,000 ML IV ONE (21:09)
[2021-09-07] MEDS ORDERED: cefTRIAXone 1,000 MG in Water for inj. (sterile) 10 ML IVP ONE (21:09)
[2021-09-07] MEDS ORDERED: Ketorolac 30 MG/ML VIAL IVP ONE (21:12)
[2021-09-07] MEDS ORDERED: Tdap (Boostrix) Vaccine 0.5 ML SYRINGE IM ONE (21:12)
[2021-09-07] MEDS ORDERED: Vancomycin 1,500 MG/265 ML IV.SOLN IVPB ONE (21:15)
[2021-09-07 21:42] LABS: Basophils % 0.5 %; Eosinophils # 0.1 K/mcL (0.0-0.6); Eosinophils % 1.8 %; Hematocrit 44.9 % (37.5-50.1); Hemoglobin 14.7 g/dL (12.9-16.9); Immature Granulocytes % 0.8 % (0-4); Lymphocytes # 2.1 K/mcL (0.6-4.6); Lymphocytes % 26.2 %; Mean Corpuscular HGB Conc 32.7 g/dL (31.6-35.5); Mean Corpuscular Hemoglobin 30.5 pg (28.0-33.3); Mean Corpuscular Volume 93.2 fL (83.0-100.0); Mean Platelet Volume 11.8 fL (9.4-12.4); Monocytes # 0.7 K/mcL (0.0-1.3); Monocytes % 8.3 %; Neutrophils # 4.9 K/mcL (1.6-8.9); Platelet Count 122 K/mcL (140-400); Red Blood Count 4.82 M/mcL (4.19-5.50); Red Cell Distribution Width 12.8 % (11.5-14.5); Segmented Neutrophils % 62.4 %; White Blood Count 7.8 K/mcL (4.3-11.1)
[2021-09-07 21:51] LABS: INR 1.1; Prothrombin Time 12.1 Seconds (9.4-12.1)
[2021-09-07 21:53] LABS: Activated Partial Thrombo Time 33.1 Seconds (26.0-36.0)
[2021-09-07 22:01] LABS: BUN/Creatinine Ratio 17 (6-26); Blood Urea Nitrogen 15 mg/dL (6-20); Carbon Dioxide 27 mEq/L (23-29); Chloride 96 mEq/L (98-107); Glucose 494 mg/dL (70-105); Osmolality,Calculated 295 (280-300); Potassium 4.1 mEq/L (3.5-5.1); Sodium 131 mEq/L (136-145); eGFR For African Americans > 60 (> 60); eGFR For Non-African Americans > 60 (> 60)
[2021-09-07 23:04] LABS: VBG HCO3 26 mEq/L (21-27); VBG PCO2 39 mmHg (41-51); VBG PH 7.43 pH Units (7.32-7.42); VBG PO2 51 mmHg (25-50)
[2021-09-08] MEDS ORDERED: Ondansetron 4 MG/2 ML VIAL IVP PRN (00:10)
[2021-09-08] MEDS ORDERED: Naloxone 0.4 MG/ML INJ IVP PRN (00:10)
[2021-09-08] MEDS ORDERED: Melatonin 3 MG TABLET PO PRN (00:10)
[2021-09-08] MEDS ORDERED: Acetaminophen 325 MG TABLET PO PRN (00:10)
[2021-09-08] MEDS ORDERED: *HR* HYDROcodone/Acet 5/325 mg TABLET PO PRN (00:10)
[2021-09-08] MEDS ORDERED: Dextrose Gel 15 GM/37.5 ML TUBE PO PRN ×2 (00:12)
[2021-09-08] MEDS ORDERED: *HR* Dextrose 50 % in Water (Syg) 50 ML SYRINGE IVP PRN (00:12)
[2021-09-08] MEDS ORDERED: D5% in Water 1,000 ML IVC PRN (00:12)
[2021-09-08] MEDS ORDERED: Insulin Human Regular 10 UNIT in 0.9 % Sodium Chloride 10 ML IV ONE (00:30)
[2021-09-08] MEDS: Piperacillin/Tazobactam 3.375 GM in 0.9 % Sodium Chloride Mini Bag 100 ML IVPB SCH ×4 (00:52→23:46)
[2021-09-08] MEDS: Ringers Solution, Lactated 1,000 ML IVC SCH ×2 (01:32→18:03)
[2021-09-08 04:12] LABS: Amphetamine Screen,Urine Negative ng/mL (Cutoff=1000); Barbiturate Screen,Urine Negative ng/mL (Cutoff=200); Benzodiazepines Screen,Urine Negative ng/mL (Cutoff=200); Cannabinoid Screen,Urine Negative ng/mL (Cutoff = 50); Cocaine Screen,Urine Negative ng/mL (Cutoff= 300); Opiate Screen,Urine Positive ng/mL (Cutoff=300); Phencyclidine Screen,Urine Negative ng/mL (Cutoff=25)
[2021-09-08] MEDS ORDERED: Ketorolac 30 MG/ML VIAL IVP PRN (04:41)
[2021-09-08] MEDS: *HR* Enoxaparin 40 MG/0.4 ML SYRINGE SQ SCH (06:09)
[2021-09-08] MEDS: Chlorhexidine Rinse 15 ML MOUTHWASH MM SCH ×4 (06:16→23:46)
[2021-09-08 06:49] LABS: Basophils # 0.1 K/mcL (0.0-0.2); Basophils % 0.8 %; Eosinophils # 0.2 K/mcL (0.0-0.6); Eosinophils % 2.8 %; Hematocrit 41.6 % (37.5-50.1); Hemoglobin 13.5 g/dL (12.9-16.9); Immature Granulocytes % 0.6 % (0-4); Immature Platelets 11.3 % (1.1-6.1); Lymphocytes # 2.4 K/mcL (0.6-4.6); Lymphocytes % 30.2 %; Mean Corpuscular HGB Conc 32.5 g/dL (31.6-35.5); Mean Corpuscular Hemoglobin 30.5 pg (28.0-33.3); Mean Corpuscular Volume 94.1 fL (83.0-100.0); Mean Platelet Volume 12.1 fL (9.4-12.4); Monocytes # 0.7 K/mcL (0.0-1.3); Monocytes % 8.9 %; Neutrophils # 4.5 K/mcL (1.6-8.9); Red Blood Count 4.42 M/mcL (4.19-5.50); Red Cell Distribution Width 13.1 % (11.5-14.5); Segmented Neutrophils % 56.7 %; White Blood Count 7.9 K/mcL (4.3-11.1)
[2021-09-08 06:59] LABS: INR 1.1; Prothrombin Time 12.8 Seconds (9.4-12.1)
[2021-09-08 07:07] LABS: Platelet Count 93 K/mcL (140-400)
[2021-09-08 07:08] LABS: Platelet Estimate Decreased (Normal)
[2021-09-08 07:36] LABS: Alanine Aminotransferase 12 Units/L (7-52); Albumin 3.1 g/dL (3.5-5.7); Albumin/Globulin Ratio 0.9 (1.1-2.2); Alkaline Phosphatase 89 Units/L (34-104); Aspartate Amino Transferase 12 Units/L (13-39); BUN/Creatinine Ratio 13 (6-26); Bilirubin,Total 0.3 mg/dL (0.3-1.0); Blood Urea Nitrogen 9 mg/dL (6-20); Carbon Dioxide 26 mEq/L (23-29); Chloride 106 mEq/L (98-107); Globulin 3.3 g/dL (2.4-3.5); Glucose 209 mg/dL (70-105); Osmolality,Calculated 289 (280-300); Phosphorous 2.7 mg/dL (2.7-4.5); Potassium 3.8 mEq/L (3.5-5.1); Sodium 137 mEq/L (136-145); Total Protein 6.4 g/dL (6.4-8.9); eGFR For African Americans > 60 (> 60); eGFR For Non-African Americans > 60 (> 60)
[2021-09-08] MEDS: Aspirin Enteric Coated 81 MG Tablet PO SCH (07:52)
[2021-09-08] MEDS: Gabapentin 300 MG CAPSULE PO SCH ×3 (07:52→20:25)
[2021-09-08] MEDS: Lactobacillus 1 EACH CAP.SPRINK PO SCH ×2 (07:52→20:26)
[2021-09-08] MEDS ORDERED: Insulin DETEMIR 100 UNIT/ML X5UNITS SUBQ SCH (09:00)
[2021-09-08] MEDS ORDERED: Chlorhexidine Rinse 15 ML MOUTHWASH MM SCH (09:00)
[2021-09-08 09:16] LABS: Magnesium 1.6 mg/dL (1.6-2.6)
[2021-09-08] MEDS ORDERED: Acetaminophen IV 1,000 MG/100 ML BAG IVPB ONE (10:15)
[2021-09-08] MEDS: Insulin LISPRO 300 UNITS/3 ML VIAL SUBQ SCH ×3 (11:03→17:45)
[2021-09-08] MEDS: Saliva Stimulant 44.3ml BOTTLE PO SCH ×4 (11:04→20:26)
[2021-09-08 11:17] LABS: C-Reactive Protein 95 mg/L (Less than 10)
[2021-09-08] MEDS: Insulin DETEMIR 100 UNIT/ML X5UNITS SUBQ SCH ×2 (12:36→22:00)
[2021-09-08] MEDS: Vancomycin 1,500 MG/265 ML IV.SOLN IVPB SCH ×2 (12:52→22:00)
[2021-09-08 13:26] LABS: Estimated Average Glucose 338 mg/dl; Hemoglobin A1C 13.4 %
[2021-09-08] MEDS ORDERED: Insulin LISPRO 300 UNITS/3 ML VIAL SUBQ SCH (21:00)
[2021-09-09 04:40] LABS: Basophils # 0.1 K/mcL (0.0-0.2); Basophils % 0.8 %; Eosinophils # 0.2 K/mcL (0.0-0.6); Eosinophils % 2.3 %; Hematocrit 44.3 % (37.5-50.1); Hemoglobin 14.1 g/dL (12.9-16.9); Immature Granulocytes % 0.6 % (0-4); Immature Platelets 7.9 % (1.1-6.1); Lymphocytes % 38.1 %; Mean Corpuscular HGB Conc 31.8 g/dL (31.6-35.5); Mean Corpuscular Hemoglobin 30.3 pg (28.0-33.3); Mean Corpuscular Volume 95.1 fL (83.0-100.0); Mean Platelet Volume 11.7 fL (9.4-12.4); Monocytes # 0.7 K/mcL (0.0-1.3); Monocytes % 8.7 %; Neutrophils # 3.9 K/mcL (1.6-8.9); Platelet Count 121 K/mcL (140-400); Red Blood Count 4.66 M/mcL (4.19-5.50); Red Cell Distribution Width 13.1 % (11.5-14.5); Segmented Neutrophils % 49.5 %; White Blood Count 7.9 K/mcL (4.3-11.1)
[2021-09-09] MEDS: Chlorhexidine Rinse 15 ML MOUTHWASH MM SCH ×4 (05:32→23:15)
[2021-09-09] MEDS: *HR* Enoxaparin 40 MG/0.4 ML SYRINGE SQ SCH (05:32)
[2021-09-09] MEDS: Aspirin Enteric Coated 81 MG Tablet PO SCH (07:31)
[2021-09-09] MEDS: Lactobacillus 1 EACH CAP.SPRINK PO SCH ×2 (07:31→20:30)
[2021-09-09] MEDS: Gabapentin 300 MG CAPSULE PO SCH ×3 (07:31→20:30)
[2021-09-09] MEDS: Saliva Stimulant 44.3ml BOTTLE PO SCH ×4 (07:32→20:30)
[2021-09-09] MEDS: Piperacillin/Tazobactam 3.375 GM in 0.9 % Sodium Chloride Mini Bag 100 ML IVPB SCH ×3 (07:32→23:55)
[2021-09-09] MEDS: Insulin LISPRO 300 UNITS/3 ML VIAL SUBQ SCH ×3 (07:43→17:50)
[2021-09-09] MEDS: Insulin DETEMIR 100 UNIT/ML X5UNITS SUBQ SCH ×2 (07:44→20:31)
[2021-09-09 09:29] LABS: BUN/Creatinine Ratio 11 (6-26); Blood Urea Nitrogen 9 mg/dL (6-20); Calcium 8.3 mg/dL (8.6-10.3); Carbon Dioxide 25 mEq/L (23-29); Chloride 102 mEq/L (98-107); Glucose 334 mg/dL (70-105); Magnesium 1.6 mg/dL (1.6-2.6); Osmolality,Calculated 286 (280-300); Potassium 4.2 mEq/L (3.5-5.1); Sodium 132 mEq/L (136-145); eGFR For African Americans > 60 (> 60); eGFR For Non-African Americans > 60 (> 60)
[2021-09-09] MEDS: Loratadine 10 MG TABLET PO SCH (11:27)
[2021-09-09] MEDS: Vancomycin 1,750 MG/517.5 ML IV.SOLN IVPB SCH ×2 (11:27→22:12)
[2021-09-09] MEDS: Artificial Tears SOLN 15 ML BOTTLE BOTH EYES SCH ×3 (15:46→20:39)
[2021-09-10] MEDS: Insulin LISPRO 300 UNITS/3 ML VIAL SUBQ SCH ×5 (02:10→20:15)
[2021-09-10 04:24] LABS: Basophils # 0.1 K/mcL (0.0-0.2); Basophils % 0.9 %; Eosinophils # 0.2 K/mcL (0.0-0.6); Eosinophils % 2.3 %; Hematocrit 44.3 % (37.5-50.1); Hemoglobin 14.7 g/dL (12.9-16.9); Immature Granulocytes % 0.8 % (0-4); Lymphocytes # 2.3 K/mcL (0.6-4.6); Lymphocytes % 36.3 %; Mean Corpuscular HGB Conc 33.2 g/dL (31.6-35.5); Mean Corpuscular Hemoglobin 30.7 pg (28.0-33.3); Mean Corpuscular Volume 92.5 fL (83.0-100.0); Mean Platelet Volume 11.5 fL (9.4-12.4); Monocytes # 0.5 K/mcL (0.0-1.3); Monocytes % 8.3 %; Neutrophils # 3.3 K/mcL (1.6-8.9); Platelet Count 122 K/mcL (140-400); Red Blood Count 4.79 M/mcL (4.19-5.50); Red Cell Distribution Width 12.7 % (11.5-14.5); Segmented Neutrophils % 51.4 %; White Blood Count 6.4 K/mcL (4.3-11.1)
[2021-09-10 04:39] LABS: BUN/Creatinine Ratio 16 (6-26); Blood Urea Nitrogen 12 mg/dL (6-20); Calcium 8.6 mg/dL (8.6-10.3); Carbon Dioxide 26 mEq/L (23-29); Chloride 102 mEq/L (98-107); Glucose 263 mg/dL (70-105); Magnesium 1.6 mg/dL (1.6-2.6); Osmolality,Calculated 287 (280-300); Potassium 4.1 mEq/L (3.5-5.1); Sodium 134 mEq/L (136-145); eGFR For African Americans > 60 (> 60); eGFR For Non-African Americans > 60 (> 60)
[2021-09-10] MEDS: *HR* Enoxaparin 40 MG/0.4 ML SYRINGE SQ SCH (05:38)
[2021-09-10] MEDS: Chlorhexidine Rinse 15 ML MOUTHWASH MM SCH ×4 (05:38→23:06)
[2021-09-10] MEDS: Aspirin Enteric Coated 81 MG Tablet PO SCH (08:29)
[2021-09-10] MEDS: Piperacillin/Tazobactam 3.375 GM in 0.9 % Sodium Chloride Mini Bag 100 ML IVPB SCH ×2 (08:29→15:39)
[2021-09-10] MEDS: Artificial Tears SOLN 15 ML BOTTLE BOTH EYES SCH ×4 (08:29→19:46)
[2021-09-10] MEDS: Loratadine 10 MG TABLET PO SCH (08:29)
[2021-09-10] MEDS: Lactobacillus 1 EACH CAP.SPRINK PO SCH ×2 (08:30→19:45)
[2021-09-10] MEDS: Famotidine 20 MG TABLET PO SCH (08:30)
[2021-09-10] MEDS: Gabapentin 300 MG CAPSULE PO SCH ×3 (08:30→19:45)
[2021-09-10] MEDS: Insulin DETEMIR 100 UNIT/ML X5UNITS SUBQ SCH ×2 (08:31→20:14)
[2021-09-10] MEDS: Saliva Stimulant 44.3ml BOTTLE PO SCH ×4 (08:31→20:14)
[2021-09-10] MEDS: Vancomycin 1,750 MG/517.5 ML IV.SOLN IVPB SCH (12:33)
[2021-09-11] MEDS: Vancomycin 2,000 MG/520 ML IV.SOLN IVPB SCH ×2 (00:34→11:31)
[2021-09-11] MEDS: Piperacillin/Tazobactam 3.375 GM in 0.9 % Sodium Chloride Mini Bag 100 ML IVPB SCH ×3 (00:35→16:18)
[2021-09-11] MEDS: Chlorhexidine Rinse 15 ML MOUTHWASH MM SCH ×3 (05:01→15:11)
[2021-09-11] MEDS: *HR* Enoxaparin 40 MG/0.4 ML SYRINGE SQ SCH (05:04)
[2021-09-11] MEDS: Insulin LISPRO 300 UNITS/3 ML VIAL SUBQ SCH ×4 (07:16→20:04)
[2021-09-11] MEDS: Saliva Stimulant 44.3ml BOTTLE PO SCH ×4 (07:16→20:02)
[2021-09-11] MEDS: Insulin DETEMIR 100 UNIT/ML X5UNITS SUBQ SCH ×2 (07:17→20:03)
[2021-09-11] MEDS: Aspirin Enteric Coated 81 MG Tablet PO SCH (07:17)
[2021-09-11] MEDS: Famotidine 20 MG TABLET PO SCH (07:18)
[2021-09-11] MEDS: Gabapentin 300 MG CAPSULE PO SCH ×3 (07:18→20:03)
[2021-09-11] MEDS: Loratadine 10 MG TABLET PO SCH (07:18)
[2021-09-11] MEDS: Lactobacillus 1 EACH CAP.SPRINK PO SCH ×2 (07:18→20:03)
[2021-09-11] MEDS: Artificial Tears SOLN 15 ML BOTTLE BOTH EYES SCH ×4 (10:55→20:03)
[2021-09-11 11:19] LABS: Adenovirus F 40/41 PCR Not detected (Not detect); Astrovirus PCR Not detected (Not detect); C.difficile Toxin A/B Gene PCR Not detected (Not detect); Campylobacter by PCR Not detected (Not detect); Cryptosporidium by PCR Not detected (Not detect); Cyclospora cayetanensis PCR Not detected (Not detect); E. coli O157 by PCR Not detected (Not detect); Entamoeba histolytica PCR Not detected (Not detect); Enteroaggregative E.coli(EAEC) Not detected (Not detect); Enteropathogenic E.coli(EPEC) Not detected (Not detect); Enterotoxigenic E.coli (ETEC) Not detected (Not detect); Giardia lamblia PCR Not detected (Not detect); Norovirus GI/GII PCR Not detected (Not detect); Plesiomonas shigelloides PCR Not detected (Not detect); Rotavirus A PCR Not detected (Not detect); Salmonella PCR Not detected (Not detect); Sapovirus PCR Not detected (Not detect); Shig/EnteroinvasiveE coli EIEC Not detected (Not detect); Shigalike tox-prod E coli STEC Not detected (Not detect); Vibrio PCR Not detected (Not detect); Vibrio cholerae PCR Not detected (Not detect); Yersinia enterocolitica PCR Not detected (Not detect)
[2021-09-12] MEDS: Vancomycin 2,000 MG/520 ML IV.SOLN IVPB SCH ×2 (00:32→12:01)
[2021-09-12] MEDS: Piperacillin/Tazobactam 3.375 GM in 0.9 % Sodium Chloride Mini Bag 100 ML IVPB SCH ×2 (00:32→08:07)
[2021-09-12] MEDS: Chlorhexidine Rinse 15 ML MOUTHWASH MM SCH ×5 (00:33→21:25)
[2021-09-12] MEDS: *HR* Enoxaparin 40 MG/0.4 ML SYRINGE SQ SCH (06:23)
[2021-09-12] MEDS: Insulin LISPRO 300 UNITS/3 ML VIAL SUBQ SCH ×4 (08:05→21:24)
[2021-09-12] MEDS: Gabapentin 300 MG CAPSULE PO SCH ×3 (08:06→21:25)
[2021-09-12] MEDS: Lactobacillus 1 EACH CAP.SPRINK PO SCH ×2 (08:06→21:23)
[2021-09-12] MEDS: Aspirin Enteric Coated 81 MG Tablet PO SCH (08:06)
[2021-09-12] MEDS: Famotidine 20 MG TABLET PO SCH (08:06)
[2021-09-12] MEDS: Loratadine 10 MG TABLET PO SCH (08:06)
[2021-09-12] MEDS: Artificial Tears SOLN 15 ML BOTTLE BOTH EYES SCH ×4 (08:07→21:25)
[2021-09-12] MEDS: Saliva Stimulant 44.3ml BOTTLE PO SCH ×4 (08:07→21:25)
[2021-09-12] MEDS: Insulin DETEMIR 100 UNIT/ML X5UNITS SUBQ SCH ×2 (09:34→21:24)
[2021-09-12] MEDS: Vancomycin 1,500 MG/265 ML IV.SOLN IVPB SCH (21:24)
[2021-09-13 04:18] LABS: eGFR For African Americans > 60 (> 60); eGFR For Non-African Americans > 60 (> 60)
[2021-09-13] MEDS: Chlorhexidine Rinse 15 ML MOUTHWASH MM SCH ×4 (05:27→20:50)
[2021-09-13] MEDS: *HR* Enoxaparin 40 MG/0.4 ML SYRINGE SQ SCH (05:49)
[2021-09-13] MEDS: Vancomycin 1,500 MG/265 ML IV.SOLN IVPB SCH (05:50)
[2021-09-13] MEDS: Insulin LISPRO 300 UNITS/3 ML VIAL SUBQ SCH ×4 (07:39→20:50)
[2021-09-13] MEDS ORDERED: Lidocaine -MPF 1% 5 ML AMPUL INFILT ONE (09:00)
[2021-09-13] MEDS: Saliva Stimulant 44.3ml BOTTLE PO SCH ×4 (09:22→20:49)
[2021-09-13] MEDS: Artificial Tears SOLN 15 ML BOTTLE BOTH EYES SCH ×4 (09:22→20:49)
[2021-09-13] MEDS: Aspirin Enteric Coated 81 MG Tablet PO SCH (09:23)
[2021-09-13] MEDS: Lactobacillus 1 EACH CAP.SPRINK PO SCH ×2 (09:23→20:49)
[2021-09-13] MEDS: Famotidine 20 MG TABLET PO SCH (09:23)
[2021-09-13] MEDS: Loratadine 10 MG TABLET PO SCH (09:23)
[2021-09-13] MEDS: Gabapentin 300 MG CAPSULE PO SCH ×3 (09:26→20:49)
[2021-09-13] MEDS: Insulin DETEMIR 100 UNIT/ML X5UNITS SUBQ SCH ×2 (12:33→20:50)
[2021-09-13] MEDS: Vancomycin 2,000 MG/520 ML IV.SOLN IVPB SCH (17:52)
[2021-09-14] MEDS: Chlorhexidine Rinse 15 ML MOUTHWASH MM SCH ×4 (05:33→23:58)
[2021-09-14] MEDS: Vancomycin 2,000 MG/520 ML IV.SOLN IVPB SCH ×2 (05:56→17:01)
[2021-09-14] MEDS: *HR* Enoxaparin 40 MG/0.4 ML SYRINGE SQ SCH (05:57)
[2021-09-14 06:59] LABS: Basophils # 0.1 K/mcL (0.0-0.2); Basophils % 0.8 %; Eosinophils # 0.1 K/mcL (0.0-0.6); Eosinophils % 1.2 %; Hematocrit 46.8 % (37.5-50.1); Hemoglobin 15.4 g/dL (12.9-16.9); Immature Granulocytes % 0.9 % (0-4); Lymphocytes # 2.8 K/mcL (0.6-4.6); Lymphocytes % 31.7 %; Mean Corpuscular HGB Conc 32.9 g/dL (31.6-35.5); Mean Corpuscular Hemoglobin 30.1 pg (28.0-33.3); Mean Corpuscular Volume 91.6 fL (83.0-100.0); Mean Platelet Volume 11.8 fL (9.4-12.4); Monocytes # 0.6 K/mcL (0.0-1.3); Monocytes % 7.2 %; Neutrophils # 5.2 K/mcL (1.6-8.9); Platelet Count 118 K/mcL (140-400); Red Blood Count 5.11 M/mcL (4.19-5.50); Red Cell Distribution Width 12.6 % (11.5-14.5); Segmented Neutrophils % 58.2 %; White Blood Count 8.9 K/mcL (4.3-11.1)
[2021-09-14 07:48] LABS: BUN/Creatinine Ratio 25 (6-26); Blood Urea Nitrogen 20 mg/dL (6-20); Calcium 8.9 mg/dL (8.6-10.3); Carbon Dioxide 24 mEq/L (23-29); Chloride 100 mEq/L (98-107); Glucose 345 mg/dL (70-105); Osmolality,Calculated 292 (280-300); Potassium 4.3 mEq/L (3.5-5.1); Sodium 133 mEq/L (136-145); eGFR For African Americans > 60 (> 60); eGFR For Non-African Americans > 60 (> 60)
[2021-09-14] MEDS: Insulin LISPRO 300 UNITS/3 ML VIAL SUBQ SCH ×4 (08:02→21:27)
[2021-09-14] MEDS: Aspirin Enteric Coated 81 MG Tablet PO SCH (08:03)
[2021-09-14] MEDS: Artificial Tears SOLN 15 ML BOTTLE BOTH EYES SCH ×4 (08:03→19:40)
[2021-09-14] MEDS: Lactobacillus 1 EACH CAP.SPRINK PO SCH ×2 (08:03→21:26)
[2021-09-14] MEDS: Loratadine 10 MG TABLET PO SCH (08:03)
[2021-09-14] MEDS: Gabapentin 300 MG CAPSULE PO SCH ×3 (08:03→23:58)
[2021-09-14] MEDS: Famotidine 20 MG TABLET PO SCH (08:03)
[2021-09-14] MEDS: Saliva Stimulant 44.3ml BOTTLE PO SCH ×4 (08:03→19:40)
[2021-09-14] MEDS: Insulin DETEMIR 100 UNIT/ML X5UNITS SUBQ SCH (08:08)
[2021-09-14] MEDS ORDERED: Insulin DETEMIR 100 UNIT/ML X5UNITS SUBQ SCH (21:00)
[2021-09-15] MEDS: Chlorhexidine Rinse 15 ML MOUTHWASH MM SCH ×3 (04:41→17:25)
[2021-09-15] MEDS: *HR* Enoxaparin 40 MG/0.4 ML SYRINGE SQ SCH (05:26)
[2021-09-15] MEDS: Vancomycin 2,000 MG/520 ML IV.SOLN IVPB SCH ×2 (05:28→17:25)
[2021-09-15 06:07] LABS: Basophils # 0.1 K/mcL (0.0-0.2); Basophils % 0.7 %; Eosinophils # 0.1 K/mcL (0.0-0.6); Eosinophils % 1.3 %; Hematocrit 46.1 % (37.5-50.1); Hemoglobin 15.6 g/dL (12.9-16.9); Immature Granulocytes % 0.8 % (0-4); Mean Corpuscular HGB Conc 33.8 g/dL (31.6-35.5); Mean Corpuscular Hemoglobin 30.9 pg (28.0-33.3); Mean Corpuscular Volume 91.3 fL (83.0-100.0); Mean Platelet Volume 11.7 fL (9.4-12.4); Monocytes # 0.8 K/mcL (0.0-1.3); Neutrophils # 5.4 K/mcL (1.6-8.9); Platelet Count 132 K/mcL (140-400); Red Blood Count 5.05 M/mcL (4.19-5.50); Red Cell Distribution Width 12.7 % (11.5-14.5); Segmented Neutrophils % 57.2 %; White Blood Count 9.5 K/mcL (4.3-11.1)
[2021-09-15 06:37] LABS: BUN/Creatinine Ratio 23 (6-26); Blood Urea Nitrogen 17 mg/dL (6-20); Carbon Dioxide 26 mEq/L (23-29); Chloride 98 mEq/L (98-107); Glucose 341 mg/dL (70-105); Osmolality,Calculated 287 (280-300); Potassium 4.2 mEq/L (3.5-5.1); Sodium 131 mEq/L (136-145); eGFR For African Americans > 60 (> 60); eGFR For Non-African Americans > 60 (> 60)
[2021-09-15] MEDS: Insulin LISPRO 300 UNITS/3 ML VIAL SUBQ SCH ×3 (08:10→17:25)
[2021-09-15] MEDS: Lactobacillus 1 EACH CAP.SPRINK PO SCH (08:14)
[2021-09-15] MEDS: Aspirin Enteric Coated 81 MG Tablet PO SCH (08:14)
[2021-09-15] MEDS: Famotidine 20 MG TABLET PO SCH (08:14)
[2021-09-15] MEDS: Gabapentin 300 MG CAPSULE PO SCH ×2 (08:14→17:24)
[2021-09-15] MEDS: Loratadine 10 MG TABLET PO SCH (08:15)
[2021-09-15] MEDS: Saliva Stimulant 44.3ml BOTTLE PO SCH ×3 (08:16→17:25)
[2021-09-15] MEDS: Artificial Tears SOLN 15 ML BOTTLE BOTH EYES SCH ×3 (08:16→17:25)
[2021-09-15] MEDS ORDERED: Insulin DETEMIR 100 UNIT/ML X5UNITS SUBQ SCH (09:00)
[2021-09-15 13:11] LABS: Influenza A PCR Negative (Negative); Influenza B PCR Negative (Negative); Resp. Syncytial Virus PCR Negative (Negative); SARS-CoV-2 by PCR (In House) Negative (Negative)
[2021-09-15 16:26] VITALS: BP 118/73; PULSE 79; TEMP 97.9; O2SAT 96
== END 2021-09-15 20:12 | DRG 383 ==
LOC: 4WAOSI 14:56 → EMEROOARM 14:56 → SUATTDRO 09-08 00:14 → 4WAOSI 09-08 00:54 → SUATTDRO 09-09 10:46 → 4WAOSI 09-11 19:09
PROVIDERS: ADMIT Internal Medicine; ATTEND Pharmacist

== ENCOUNTER 2021-10-05 22:29 | Observation (INO) ==
[2021-10-05 23:32] LABS: Hematocrit 45.3 % (37.5-50.1); Immature Platelets 8.8 % (1.1-6.1); Mean Corpuscular HGB Conc 33.1 g/dL (31.6-35.5); Mean Corpuscular Hemoglobin 30.9 pg (28.0-33.3); Mean Corpuscular Volume 93.2 fL (83.0-100.0); Mean Platelet Volume 11.5 fL (9.4-12.4); Red Blood Count 4.86 M/mcL (4.19-5.50); Red Cell Distribution Width 12.9 % (11.5-14.5); White Blood Count 4.3 K/mcL (4.3-11.1)
[2021-10-05 23:39] LABS: BUN/Creatinine Ratio 16 (6-26); Blood Urea Nitrogen 14 mg/dL (6-20); Calcium 8.6 mg/dL (8.6-10.3); Carbon Dioxide 28 mEq/L (23-29); Chloride 100 mEq/L (98-107); Glucose 276 mg/dL (70-105); Osmolality,Calculated 292 (280-300); Sodium 136 mEq/L (136-145); eGFR For African Americans > 60 (> 60); eGFR For Non-African Americans > 60 (> 60)
[2021-10-06 00:38] LABS: Amphetamine Screen,Urine Negative ng/mL (Cutoff=1000); Barbiturate Screen,Urine Negative ng/mL (Cutoff=200); Benzodiazepines Screen,Urine Negative ng/mL (Cutoff=200); Cannabinoid Screen,Urine Negative ng/mL (Cutoff = 50); Cocaine Screen,Urine Negative ng/mL (Cutoff= 300); Opiate Screen,Urine Negative ng/mL (Cutoff=300); Phencyclidine Screen,Urine Negative ng/mL (Cutoff=25)
[2021-10-06] MEDS ORDERED: Melatonin 3 MG TABLET PO PRN (02:02)
[2021-10-06] MEDS ORDERED: *HR* OxyCODONE Immed Rel 5 MG TABLET PO PRN (02:02)
[2021-10-06] MEDS ORDERED: Acetaminophen 325 MG TABLET PO PRN (02:02)
[2021-10-06] MEDS ORDERED: *HR* HYDROcodone/Acet 5/325 mg TABLET PO PRN (02:02)
[2021-10-06] MEDS ORDERED: Naloxone 0.4 MG/ML INJ IVP PRN (02:02)
[2021-10-06] MEDS ORDERED: Ondansetron ODT 4 MG TAB.RAPDIS SL PRN (02:02)
[2021-10-06] MEDS ORDERED: Aspirin 325 MG TABLET PO ONE (02:05)
[2021-10-06] MEDS ORDERED: Perflutren Lipid Microsphere 1.3 ML in 0.9 % Sodium Chloride 8.7 ML IVP PRN (02:07)
[2021-10-06] MEDS ORDERED: 0.9 % Sodium Chloride 1,000 ML IVC SCH (02:15)
[2021-10-06] MEDS ORDERED: *HR* Dextrose 50 % in Water (Syg) 50 ML SYRINGE IVP PRN (02:28)
[2021-10-06] MEDS ORDERED: D5% in Water 1,000 ML IVC PRN (02:28)
[2021-10-06] MEDS ORDERED: Dextrose 4 GM Chewable Tablets PO PRN ×2 (02:28)
[2021-10-06] MEDS: Insulin LISPRO 300 UNITS/3 ML VIAL SUBQ SCH ×4 (05:42→16:05)
[2021-10-06 05:55] LABS: Hemoglobin 14.5 g/dL (12.9-16.9)
[2021-10-06 05:57] LABS: Hematocrit 42.2 % (37.5-50.1); Immature Platelets 6.8 % (1.1-6.1); Mean Corpuscular HGB Conc 34.4 g/dL (31.6-35.5); Mean Corpuscular Hemoglobin 31.3 pg (28.0-33.3); Mean Corpuscular Volume 90.9 fL (83.0-100.0); Mean Platelet Volume 11.9 fL (9.4-12.4); Red Blood Count 4.64 M/mcL (4.19-5.50); Red Cell Distribution Width 12.8 % (11.5-14.5); White Blood Count 4.6 K/mcL (4.3-11.1)
[2021-10-06 06:11] LABS: BUN/Creatinine Ratio 19 (6-26); Blood Urea Nitrogen 13 mg/dL (6-20); Calcium 8.2 mg/dL (8.6-10.3); Carbon Dioxide 26 mEq/L (23-29); Chloride 105 mEq/L (98-107); Chol/HDL Ratio 3.2 (0-4.9); Cholesterol 94 mg/dL (< 200); Glucose 182 mg/dL (70-105); HDL Cholesterol 29 mg/dL (40-59); LDL Cholesterol,Calculated 50 mg/dL (< 100); Magnesium 1.6 mg/dL (1.6-2.6); Osmolality,Calculated 289 (280-300); Phosphorous 3.3 mg/dL (2.7-4.5); Potassium 3.6 mEq/L (3.5-5.1); Sodium 137 mEq/L (136-145); Triglycerides 77 mg/dL (< 150); eGFR For African Americans > 60 (> 60); eGFR For Non-African Americans > 60 (> 60)
[2021-10-06] MEDS ORDERED: Regadenoson 0.4 MG/5 ML SYRINGE IVP ONE (06:32)
[2021-10-06 07:10] LABS: Adenovirus Not Detected (Not Detect); Bordetella Pertussis Not Detected (Not Detect); Chlamydophila pneumoniae Not Detected (Not Detect); Coronavirus 229E Not Detected (Not Detect); Coronavirus HKU1 Not Detected (Not Detect); Coronavirus NL63 Not Detected (Not Detect); Coronavirus OC43 Not Detected (Not Detect); Human Metapneumovirus Not Detected (Not Detect); Human Rhinovirus/Enterovirus Not Detected (Not Detect); Influenza A Subtype 2009 H1 Not Detected (Not Detect); Influenza B Not Detected (Not Detect); Mycoplasma pneumoniae Not Detected (Not Detect); Parainfluenza Virus 1 Not Detected (Not Detect); Parainfluenza Virus 2 Not Detected (Not Detect); Parainfluenza Virus 3 Not Detected (Not Detect); Parainfluenza Virus 4 Not Detected (Not Detect); Respiratory Syncytial Virus Not Detected (Not Detect); SARS-CoV-2 Not Detected (Not Detect)
[2021-10-06 14:29] VITALS: BP 122/77; PULSE 63; TEMP 97.9; O2SAT 94
[2021-10-07] MEDS ORDERED: Aspirin 81 MG TAB.CHEW PO SCH (09:00)
== END 2021-10-06 19:36 ==
LOC: 3BNU 22:29 → EMEROOARM 22:29 → SUATTDRO 10-06 02:08 → 3BNU 10-06 02:30
PROVIDERS: ADMIT Internal Medicine; ATTEND Registered Nurse

== ENCOUNTER 2021-11-19 04:02 | Inpatient (IN) ==
[2021-11-19 04:42] LABS: Bilirubin,Urine Negative (Negative); Blood,Urine Negative (Negative); Clarity,Urine Clear (Clear); Color,Urine Yellow (Yellow); Glucose,Urine (UA) 300 mg/dL (Normal); Ketones,Urine Negative (Negative); Leukocyte Esterase,Urine Negative (Negative); Nitrite,Urine Negative (Negative); PH,Urine 5.5 pH Units (5.0-8.0); Protein,Urine 30 mg/dL (Neg-Trace); Specific Gravity,Urine 1.029 (1.010-1.025); Urobilinogen,Urine Normal (Normal)
[2021-11-19 04:46] LABS: Basophils # 0.1 K/mcL (0.0-0.2); Basophils % 0.6 %; Eosinophils # 0.1 K/mcL (0.0-0.6); Eosinophils % 1.5 %; Hematocrit 53.6 % (37.5-50.1); Hemoglobin 17.9 g/dL (12.9-16.9); Immature Granulocytes % 0.1 % (0-4); Immature Platelets 8.5 % (1.1-6.1); Lymphocytes # 3.4 K/mcL (0.6-4.6); Lymphocytes % 38.4 %; Mean Corpuscular HGB Conc 33.4 g/dL (31.6-35.5); Mean Corpuscular Hemoglobin 30.9 pg (28.0-33.3); Mean Corpuscular Volume 92.6 fL (83.0-100.0); Mean Platelet Volume 11.4 fL (9.4-12.4); Monocytes # 0.6 K/mcL (0.0-1.3); Monocytes % 6.8 %; Neutrophils # 4.6 K/mcL (1.6-8.9); Platelet Count 113 K/mcL (140-400); Red Blood Count 5.79 M/mcL (4.19-5.50); Red Cell Distribution Width 13.3 % (11.5-14.5); Segmented Neutrophils % 52.6 %; White Blood Count 8.8 K/mcL (4.3-11.1)
[2021-11-19 05:00] LABS: Amphetamine Screen,Urine Negative ng/mL (Cutoff=1000); Barbiturate Screen,Urine Negative ng/mL (Cutoff=200); Benzodiazepines Screen,Urine Negative ng/mL (Cutoff=200); Cannabinoid Screen,Urine Positive ng/mL (Cutoff = 50); Cocaine Screen,Urine Negative ng/mL (Cutoff= 300); Opiate Screen,Urine Negative ng/mL (Cutoff=300); Phencyclidine Screen,Urine Negative ng/mL (Cutoff=25)
[2021-11-19 05:04] LABS: Acetaminophen < 10 mcg/mL (10-20); BUN/Creatinine Ratio 13 (6-26); Blood Urea Nitrogen 12 mg/dL (6-20); Calcium 9.1 mg/dL (8.6-10.3); Carbon Dioxide 25 mEq/L (23-29); Chloride 103 mEq/L (98-107); Ethanol < 10 mg/dL (Less than 10); Glucose 158 mg/dL (70-105); Osmolality,Calculated 285 (280-300); Potassium 3.8 mEq/L (3.5-5.1); Salicylate < 2.5 mg/dL (15.0-30.0); Sodium 136 mEq/L (136-145); eGFR For African Americans > 60 (> 60); eGFR For Non-African Americans > 60 (> 60)
[2021-11-19 07:16] LABS: Influenza A PCR Negative (Negative); Influenza B PCR Negative (Negative); Resp. Syncytial Virus PCR Negative (Negative)
[2021-11-19 07:49] LABS: SARS-CoV-2 by PCR (In House) Negative (Negative)
[2021-11-19] MEDS ORDERED: Insulin LISPRO 300 UNITS/3 ML VIAL SUBQ ONE (10:30)
[2021-11-19] MEDS ORDERED: Insulin DETEMIR 100 UNIT/ML X5UNITS SUBQ ONE (10:30)
[2021-11-19] MEDS ORDERED: *HR* LORazepam 2 MG/ML VIAL IM PRN (13:21)
[2021-11-19] MEDS ORDERED: traZODone 50 MG TABLET PO PRN (13:21)
[2021-11-19] MEDS ORDERED: MOM Conc 10 ML UD.LIQ PO PRN (13:21)
[2021-11-19] MEDS ORDERED: *HR* LORazepam 1 MG TABLET PO PRN (13:21)
[2021-11-19] MEDS ORDERED: Haloperidol Lactate 5 MG/ML VIAL IM PRN (13:21)
[2021-11-19] MEDS ORDERED: haloperidoL 5 MG TABLET PO PRN (13:21)
[2021-11-19] MEDS: Insulin LISPRO 300 UNITS/3 ML VIAL SUBQ SCH ×2 (16:36→21:21)
[2021-11-19] MEDS ORDERED: Dextrose 4 GM Chewable Tablets PO PRN ×2 (18:00)
[2021-11-19] MEDS ORDERED: D5% in Water 1,000 ML IVC PRN (18:00)
[2021-11-19] MEDS: Insulin DETEMIR 100 UNIT/ML X5UNITS SUBQ SCH (21:24)
[2021-11-20] MEDS: Insulin LISPRO 300 UNITS/3 ML VIAL SUBQ SCH ×6 (08:29→16:53)
[2021-11-20] MEDS: Insulin DETEMIR 100 UNIT/ML X5UNITS SUBQ SCH ×2 (08:30→21:23)
[2021-11-20] MEDS: Gabapentin 300 MG CAPSULE PO SCH ×2 (12:19→21:01)
[2021-11-20] MEDS: QUEtiapine Fumarate 25 MG TABLET PO PRN (21:01)
[2021-11-21] MEDS: Insulin LISPRO 300 UNITS/3 ML VIAL SUBQ SCH ×6 (11:09→17:37)
[2021-11-21] MEDS: Insulin DETEMIR 100 UNIT/ML X5UNITS SUBQ SCH (11:13)
[2021-11-21] MEDS: Gabapentin 300 MG CAPSULE PO SCH ×2 (11:16→20:59)
[2021-11-21] MEDS: Acetaminophen 325 MG TABLET PO PRN (15:20)
[2021-11-21] MEDS: QUEtiapine Fumarate 25 MG TABLET PO PRN (20:58)
[2021-11-21] MEDS ORDERED: Insulin DETEMIR 100 UNIT/ML X5UNITS SUBQ SCH (21:00)
[2021-11-22] MEDS: Insulin LISPRO 300 UNITS/3 ML VIAL SUBQ SCH ×6 (08:10→16:28)
[2021-11-22] MEDS: Gabapentin 300 MG CAPSULE PO SCH ×2 (08:57→21:48)
[2021-11-22] MEDS: Insulin DETEMIR 100 UNIT/ML X5UNITS SUBQ SCH ×2 (09:00→21:46)
[2021-11-22] MEDS ORDERED: Insulin DETEMIR 100 UNIT/ML X5UNITS SUBQ SCH (09:00)
[2021-11-22] MEDS: Mag Hydrox/Al Hydrox/Simeth 30 ML UDC PO PRN (22:41)
[2021-11-22] MEDS: QUEtiapine Fumarate 25 MG TABLET PO PRN (23:36)
[2021-11-23] MEDS: Insulin LISPRO 300 UNITS/3 ML VIAL SUBQ SCH ×6 (08:19→16:54)
[2021-11-23] MEDS: Insulin DETEMIR 100 UNIT/ML X5UNITS SUBQ SCH ×2 (08:22→20:43)
[2021-11-23] MEDS: Gabapentin 300 MG CAPSULE PO SCH ×2 (08:33→20:43)
[2021-11-23] MEDS: QUEtiapine Fumarate 25 MG TABLET PO PRN (22:12)
[2021-11-24] MEDS: Insulin DETEMIR 100 UNIT/ML X5UNITS SUBQ SCH ×2 (08:21→21:28)
[2021-11-24] MEDS: Gabapentin 300 MG CAPSULE PO SCH ×2 (08:27→21:28)
[2021-11-24] MEDS: Insulin LISPRO 300 UNITS/3 ML VIAL SUBQ SCH ×6 (08:30→16:30)
[2021-11-24] MEDS: hydrOXYzine pamoate 25 MG CAPSULE PO PRN (21:27)
[2021-11-24] MEDS: QUEtiapine Fumarate 25 MG TABLET PO PRN (21:28)
[2021-11-24] MEDS: Doxycycline 100 MG CAPSULE PO SCH (21:28)
[2021-11-24] MEDS: Mag Hydrox/Al Hydrox/Simeth 30 ML UDC PO PRN (21:42)
[2021-11-25] MEDS: Mag Hydrox/Al Hydrox/Simeth 30 ML UDC PO PRN (05:41)
[2021-11-25] MEDS: Insulin LISPRO 300 UNITS/3 ML VIAL SUBQ SCH ×6 (09:38→16:51)
[2021-11-25] MEDS: Insulin DETEMIR 100 UNIT/ML X5UNITS SUBQ SCH ×2 (09:41→21:03)
[2021-11-25] MEDS: Gabapentin 300 MG CAPSULE PO SCH ×2 (10:00→21:04)
[2021-11-25] MEDS: Doxycycline 100 MG CAPSULE PO SCH ×2 (10:01→21:03)
[2021-11-25] MEDS: hydrOXYzine pamoate 25 MG CAPSULE PO PRN (21:03)
[2021-11-25] MEDS: QUEtiapine Fumarate 25 MG TABLET PO PRN (21:04)
[2021-11-26] MEDS: Insulin LISPRO 300 UNITS/3 ML VIAL SUBQ SCH ×7 (08:05→20:33)
[2021-11-26] MEDS: Insulin DETEMIR 100 UNIT/ML X5UNITS SUBQ SCH ×2 (08:09→20:33)
[2021-11-26] MEDS: hydrOXYzine pamoate 25 MG CAPSULE PO PRN ×3 (08:42→21:18)
[2021-11-26] MEDS: Doxycycline 100 MG CAPSULE PO SCH ×2 (08:43→21:02)
[2021-11-26] MEDS: Gabapentin 300 MG CAPSULE PO SCH ×2 (08:43→21:02)
[2021-11-26] MEDS: Acetaminophen 325 MG TABLET PO PRN (21:17)
[2021-11-26] MEDS: QUEtiapine Fumarate 25 MG TABLET PO PRN (21:18)
[2021-11-27] MEDS: Doxycycline 100 MG CAPSULE PO SCH ×2 (08:05→21:01)
[2021-11-27] MEDS: Gabapentin 300 MG CAPSULE PO SCH ×2 (08:06→21:01)
[2021-11-27] MEDS: Insulin LISPRO 300 UNITS/3 ML VIAL SUBQ SCH ×7 (08:07→21:03)
[2021-11-27] MEDS: Insulin DETEMIR 100 UNIT/ML X5UNITS SUBQ SCH ×2 (09:45→21:25)
[2021-11-27] MEDS: hydrOXYzine pamoate 25 MG CAPSULE PO PRN ×2 (13:59→21:01)
[2021-11-27] MEDS: QUEtiapine Fumarate 25 MG TABLET PO PRN (21:01)
[2021-11-27] MEDS: Mag Hydrox/Al Hydrox/Simeth 30 ML UDC PO PRN (21:47)
[2021-11-28] MEDS ORDERED: Insulin LISPRO 300 UNITS/3 ML VIAL SUBQ SCH (07:33)
[2021-11-28] MEDS: Doxycycline 100 MG CAPSULE PO SCH (08:01)
[2021-11-28] MEDS: Gabapentin 300 MG CAPSULE PO SCH (08:02)
[2021-11-28] MEDS: Insulin LISPRO 300 UNITS/3 ML VIAL SUBQ SCH ×3 (08:05→12:17)
[2021-11-28] MEDS: Insulin DETEMIR 100 UNIT/ML X5UNITS SUBQ SCH (08:06)
[2021-11-28 08:28] VITALS: BP 130/85; PULSE 71; TEMP 97.1; O2SAT 98
== END 2021-11-28 15:40 | disposition home or self-care (01) | DRG 751 ==
LOC: EMEROOARM 04:02 → 1ANU 13:13
PROVIDERS: ADMIT Psychiatry & Neurology Psychiatry; ATTEND Psychiatry & Neurology Psychiatry

== ENCOUNTER 2021-12-20 13:37 | Observation (INO) ==
[2021-12-20] MEDS ORDERED: Aspirin 81 MG TAB.CHEW PO ONE (13:47)
[2021-12-20] MEDS ORDERED: *HR* LORazepam 2 MG/ML VIAL ONE (13:58)
[2021-12-20] MEDS ORDERED: *HR* LORazepam 2 MG/ML VIAL IVP ONE (13:59)
[2021-12-20] MEDS ORDERED: Nitroglycerin 0.4 MG TAB.SUBL SL SCH (14:00)
[2021-12-20 14:07] LABS: Immature Granulocytes % 0.3 % (0-4); Platelet Count 107 K/mcL (140-400)
[2021-12-20 14:09] LABS: Basophils # 0.1 K/mcL (0.0-0.2); Basophils % 0.7 %; Eosinophils # 0.1 K/mcL (0.0-0.6); Eosinophils % 1.2 %; Hematocrit 47.6 % (37.5-50.1); Hemoglobin 15.9 g/dL (12.9-16.9); Immature Platelets 8.4 % (1.1-6.1); Lymphocytes # 2.6 K/mcL (0.6-4.6); Lymphocytes % 37.2 %; Mean Corpuscular HGB Conc 33.4 g/dL (31.6-35.5); Mean Corpuscular Hemoglobin 30.8 pg (28.0-33.3); Mean Corpuscular Volume 92.2 fL (83.0-100.0); Mean Platelet Volume 11.5 fL (9.4-12.4); Monocytes # 0.6 K/mcL (0.0-1.3); Neutrophils # 3.6 K/mcL (1.6-8.9); Red Blood Count 5.16 M/mcL (4.19-5.50); Red Cell Distribution Width 13.3 % (11.5-14.5); Segmented Neutrophils % 52.6 %; White Blood Count 6.9 K/mcL (4.3-11.1)
[2021-12-20 14:20] LABS: BUN/Creatinine Ratio 18 (6-26); Blood Urea Nitrogen 18 mg/dL (6-20); Carbon Dioxide 25 mEq/L (23-29); Chloride 103 mEq/L (98-107); Glucose 173 mg/dL (70-105); Osmolality,Calculated 290 (280-300); Potassium 3.7 mEq/L (3.5-5.1); Sodium 137 mEq/L (136-145); Troponin I < 0.03 ng/mL (< 0.04); eGFR For African Americans > 60 (> 60); eGFR For Non-African Americans > 60 (> 60)
[2021-12-20 14:38] LABS: Phenytoin (Dilantin) 2.3 mcg/mL (10.0-20.0)
[2021-12-20 14:43] LABS: Amphetamine Screen,Urine Negative ng/mL (Cutoff=1000); Barbiturate Screen,Urine Negative ng/mL (Cutoff=200); Benzodiazepines Screen,Urine Negative ng/mL (Cutoff=200); Cannabinoid Screen,Urine Negative ng/mL (Cutoff = 50); Cocaine Screen,Urine Negative ng/mL (Cutoff= 300); Opiate Screen,Urine Negative ng/mL (Cutoff=300); Phencyclidine Screen,Urine Negative ng/mL (Cutoff=25)
[2021-12-20] MEDS ORDERED: Phenytoin 1,000 MG in Equashield Syringe 1 EACH IVP STA (15:05)
[2021-12-20] MEDS ORDERED: Melatonin 3 MG TABLET PO PRN (15:39)
[2021-12-20] MEDS ORDERED: Naloxone 0.4 MG/ML INJ IVP PRN (15:39)
[2021-12-20] MEDS ORDERED: Ondansetron ODT 4 MG TAB.RAPDIS SL PRN (15:39)
[2021-12-20] MEDS ORDERED: Perflutren Lipid Microsphere 1.3 ML in 0.9 % Sodium Chloride 8.7 ML IVP PRN (16:39)
[2021-12-20] MEDS ORDERED: Acetaminophen 325 MG TABLET PO PRN (17:28)
[2021-12-20] MEDS ORDERED: D5% in Water 1,000 ML IVC PRN (22:11)
[2021-12-20] MEDS ORDERED: *HR* Dextrose 50 % in Water (Syg) 50 ML SYRINGE IVP PRN (22:11)
[2021-12-20] MEDS ORDERED: Dextrose Gel 15 GM/37.5 ML TUBE PO PRN ×2 (22:11)
[2021-12-20 23:09] LABS: Estimated Average Glucose 258 mg/dl; Hemoglobin A1C 10.6 %
[2021-12-21] MEDS: Insulin LISPRO 300 UNITS/3 ML VIAL SUBQ SCH ×2 (07:56→12:06)
[2021-12-21] MEDS ORDERED: Gabapentin 300 MG CAPSULE PO SCH (09:00)
[2021-12-21] MEDS ORDERED: Insulin DETEMIR 100 UNIT/ML X5UNITS SUBQ SCH (09:00)
[2021-12-21] MEDS ORDERED: Aspirin 81 MG TAB.CHEW PO SCH ×2 (09:00)
[2021-12-21] MEDS ORDERED: Famotidine 20 MG TABLET PO SCH (09:00)
[2021-12-21 09:10] LABS: Hemoglobin 16.3 g/dL (12.9-16.9); Platelet Count 113 K/mcL (140-400)
[2021-12-21 09:11] LABS: Basophils % 0.7 %
[2021-12-21 09:12] LABS: Basophils # 0.1 K/mcL (0.0-0.2); Eosinophils # 0.1 K/mcL (0.0-0.6); Eosinophils % 1.1 %; Hematocrit 48.4 % (37.5-50.1); Immature Granulocytes % 0.3 % (0-4); Immature Platelets 7.2 % (1.1-6.1); Lymphocytes # 2.6 K/mcL (0.6-4.6); Lymphocytes % 24.3 %; Mean Corpuscular HGB Conc 33.7 g/dL (31.6-35.5); Mean Corpuscular Hemoglobin 30.9 pg (28.0-33.3); Mean Corpuscular Volume 91.8 fL (83.0-100.0); Mean Platelet Volume 11.5 fL (9.4-12.4); Monocytes # 0.9 K/mcL (0.0-1.3); Monocytes % 8.4 %; Red Blood Count 5.27 M/mcL (4.19-5.50); Red Cell Distribution Width 13.5 % (11.5-14.5); Segmented Neutrophils % 65.2 %; White Blood Count 10.7 K/mcL (4.3-11.1)
[2021-12-21 09:18] LABS: INR 1.2; Prothrombin Time 13.1 Seconds (9.4-12.1)
[2021-12-21 09:30] LABS: Alanine Aminotransferase 16 Units/L (7-52); Albumin 3.7 g/dL (3.5-5.7); Albumin/Globulin Ratio 1.2 (1.1-2.2); Alkaline Phosphatase 69 Units/L (34-104); Aspartate Amino Transferase 20 Units/L (13-39); BUN/Creatinine Ratio 14 (6-26); Bilirubin,Total 0.7 mg/dL (0.3-1.0); Blood Urea Nitrogen 11 mg/dL (6-20); Calcium 8.7 mg/dL (8.6-10.3); Carbon Dioxide 23 mEq/L (23-29); Chloride 108 mEq/L (98-107); Globulin 3.2 g/dL (2.4-3.5); Glucose 207 mg/dL (70-105); Magnesium 1.7 mg/dL (1.6-2.6); Osmolality,Calculated 291 (280-300); Phosphorous 2.8 mg/dL (2.7-4.5); Potassium 4.1 mEq/L (3.5-5.1); Sodium 138 mEq/L (136-145); Total Protein 6.9 g/dL (6.4-8.9); eGFR For African Americans > 60 (> 60); eGFR For Non-African Americans > 60 (> 60)
[2021-12-21] MEDS ORDERED: Iopamidol - 370 500 ML MLS IVP ONE (12:02)
[2021-12-21 16:23] VITALS: BP 137/88; PULSE 71; TEMP 97.5; O2SAT 96
== END 2021-12-21 17:00 | disposition home or self-care (01) ==
LOC: 3NENU 13:37 → EMEROOARM 13:37 → SUATTDRO 15:49 → 3NENU 17:21
PROVIDERS: ADMIT Hospitalist; ATTEND Family Medicine

== ENCOUNTER 2021-12-24 05:24 | Observation (INO) ==
[2021-12-24] MEDS: Nitroglycerin 0.4 MG TAB.SUBL SL PRN ×3 (05:42→06:00)
[2021-12-24 06:23] LABS: Hematocrit 46.9 % (37.5-50.1)
[2021-12-24 06:24] LABS: Basophils % 0.7 %; Eosinophils % 0.7 %; Hemoglobin 16.1 g/dL (12.9-16.9); Immature Granulocytes % 0.2 % (0-4); Immature Platelets 9.7 % (1.1-6.1); Lymphocytes # 1.7 K/mcL (0.6-4.6); Lymphocytes % 29.5 %; Mean Corpuscular HGB Conc 34.3 g/dL (31.6-35.5); Mean Corpuscular Volume 90.4 fL (83.0-100.0); Mean Platelet Volume 12.5 fL (9.4-12.4); Monocytes # 0.4 K/mcL (0.0-1.3); Monocytes % 7.3 %; Red Blood Count 5.19 M/mcL (4.19-5.50); Red Cell Distribution Width 13.2 % (11.5-14.5); Segmented Neutrophils % 61.6 %; White Blood Count 5.6 K/mcL (4.3-11.1)
[2021-12-24 06:29] LABS: Neutrophils # 3.5 K/mcL (1.6-8.9); Platelet Count 91 K/mcL (140-400)
[2021-12-24 06:32] LABS: INR 1.2; Prothrombin Time 13.7 Seconds (9.4-12.1)
[2021-12-24 06:35] LABS: Activated Partial Thrombo Time 33.7 Seconds (26.0-36.0)
[2021-12-24 06:46] LABS: Alanine Aminotransferase 16 Units/L (7-52); Albumin 4.2 g/dL (3.5-5.7); Albumin/Globulin Ratio 1.2 (1.1-2.2); Alkaline Phosphatase 73 Units/L (34-104); Aspartate Amino Transferase 14 Units/L (13-39); BUN/Creatinine Ratio 19 (6-26); Bilirubin,Direct 0.1 mg/dL (0.0-0.2); Bilirubin,Indirect 0.5 mg/dL (0.0-1.0); Bilirubin,Total 0.6 mg/dL (0.3-1.0); Blood Urea Nitrogen 14 mg/dL (6-20); Calcium 9.3 mg/dL (8.6-10.3); Carbon Dioxide 24 mEq/L (23-29); Chloride 103 mEq/L (98-107); Globulin 3.4 g/dL (2.4-3.5); Glucose 292 mg/dL (70-105); Lipase 49 Units/L (11-82); Osmolality,Calculated 291 (280-300); Potassium 3.9 mEq/L (3.5-5.1); Sodium 135 mEq/L (136-145); Total Protein 7.6 g/dL (6.4-8.9); Troponin I < 0.03 ng/mL (< 0.04); eGFR For African Americans > 60 (> 60); eGFR For Non-African Americans > 60 (> 60)
[2021-12-24 06:52] LABS: Platelet Estimate Decreased (Normal)
[2021-12-24] MEDS ORDERED: *HR* FentaNYL (PF) 100 MCG/2 ML VIAL IVP ONE (07:04)
[2021-12-24] MEDS ORDERED: Ondansetron 4 MG/2 ML VIAL IVP PRN (07:30)
[2021-12-24] MEDS ORDERED: Naloxone 0.4 MG/ML INJ IVP PRN (07:30)
[2021-12-24] MEDS ORDERED: Dextrose Gel 15 GM/37.5 ML TUBE PO PRN ×2 (07:32)
[2021-12-24] MEDS ORDERED: *HR* Dextrose 50 % in Water (Syg) 50 ML SYRINGE IVP PRN (07:32)
[2021-12-24] MEDS ORDERED: D5% in Water 1,000 ML IVC PRN (07:32)
[2021-12-24] MEDS ORDERED: Morphine Sulfate 2 MG/ML SYRINGE IVP PRN (07:33)
[2021-12-24] MEDS ORDERED: Insulin LISPRO 300 UNITS/3 ML VIAL SUBQ SCH (12:00)
[2021-12-24 13:05] VITALS: BP 157/88; PULSE 98; TEMP 97.4; O2SAT 93
[2021-12-24] MEDS ORDERED: *HR* Heparin 5,000 UNIT/ML VIAL SQ SCH (14:00)
== END 2021-12-24 16:24 | disposition home or self-care (01) ==
LOC: EMEROOARM 05:24 → 3ANU 05:24
PROVIDERS: ADMIT Student in an Organized Health Care Education/Training Program; ATTEND Student in an Organized Health Care Education/Training Program